=== PATIENT | female | born 1970 | race Caucasian/White ===

== ENCOUNTER 2019-05-22 02:32 | Inpatient (IN) | payer OTHER ==
[~2019-05-22] VITALS: Ht 157.5 cm; Wt 58.1 kg
--- NOTE | 2019-05-22 02:35 | NUR ---
PT [id number] C/O HYPERGLYCEMIA X 1 DAY. PER EMS, BLOOD SUGAR READ "HI" PT AXO3. RESPIRATIONS EVEN AND UNLABORED. PT PUT ON THE NATURAL REMEDY CONSULTANT AND PULSE OX. PT HAVING NAUSEA AND VOMITTING.
[2019-05-22] MEDS ORDERED: ONDANSETRON HCL/PF 4 MG/2 ML VIAL ONE (02:43)
[2019-05-22] MEDS ORDERED: MORPHINE SULFATE INJ 4 MG/ML DISP.SYRIN ONE (02:43)
--- NOTE | 2019-05-22 02:55 | NUR ---
EKG AT BEDSIDE.
[2019-05-22] MEDS ORDERED: IV NS 0.9% 1,000 ML BAG IV ONE (03:00)
[2019-05-22] MEDS ORDERED: INSULIN REGULAR, HUMAN 100 UNIT/ML 10 ML VIAL IV ONE (03:00)
[2019-05-22] MEDS ORDERED: MORPHINE SULFATE INJ 2 MG/ML DISP.SYRIN IV ONE (03:00)
[2019-05-22] MEDS ORDERED: ONDANSETRON HCL/PF 4 MG/2 ML VIAL IVP ONE (03:00)
[2019-05-22 03:09] LABS: BASOPHILS # (AUTO) 0.1 /CMM (0.0-0.2); BASOPHILS % (AUTO) 0.3 % (0.0-2.0); EOSINOPHILS % (AUTO) 0.6 % (0.0-6.0); HEMATOCRIT 40 % (33-45); LYMPHOCYTES # (AUTO) 1.1 /CMM (0.8-4.8); LYMPHOCYTES % (AUTO) 5.5 % (20.0-44.0); MEAN CORPUSCULAR HGB CONC 35 g/dl (31.0-36.0); MEAN CORPUSCULAR VOLUME 92 fL (82-100); MONOCYTES # (AUTO) 0.9 /CMM (0.1-1.30); MONOCYTES % (AUTO) 4.9 % (2.0-12.0); NEUTROPHILS # (AUTO) 17.2 /CMM (1.8-8.9); NEUTROPHILS % (AUTO) 88.7 % (43.0-81.0); PLATELET COUNT (AUTO) 350 /CMM (150-450); RED BLOOD CELL COUNT(AUTO) 4.32 MIL/uL (4.0-5.2); WHITE BLOOD COUNT (AUTO) 19.4 K/uL (4.3-11.0)
[2019-05-22] MEDS ORDERED: INSULIN REGULAR, HUMAN 100 UNIT/ML 10 ML VIAL ONE (03:12)
[2019-05-22 03:24] LABS: ALBUMIN 3.3 g/dL (3.4-5.0); ALKALINE PHOSPHATASE 177 U/L (46-116); BILIRUBIN,DIRECT 0.1 mg/dL (0.0-0.2); BILIRUBIN,TOTAL 0.6 mg/dL (0.2-1.0); CARBON DIOXIDE 22 mmol/L (21-32); CHLORIDE 88 mmol/L (98-107); LIPASE 245 U/L (73-393); POTASSIUM 4.1 mmol/L (3.5-5.1); SODIUM SERUM 123 mmol/L (136-145); TOTAL PROTEIN, SERUM 8.2 g/dL (6.4-8.2); UREA NITROGEN, BLOOD 21 mg/dL (7-18)
[2019-05-22 03:29] LABS: GLUCOSE 614 mg/dL (74-106)
--- NOTE | 2019-05-22 03:34 | NUR ---
PT UNABLE TO URINATE AT THIS MOMENT, ER AWARE.
--- NOTE | 2019-05-22 03:50 | NUR ---
PT AMBULATORY WITH STEADY GAIT TO RESTROOM, URINE SAMPLE OBTAINED AND SENT TO LAB.
[2019-05-22 03:57] LABS: APPEARANCE,URINE Slightly Cloudy (CLEAR); BILIRUBIN,URINE Negative (NEGATIVE); BLOOD, URINE Moderate Ery/uL (NEGATIVE); COLOR,URINE Yellow (YELLOW); KETONES,URINE 15 (NEGATIVE); LEUKOCYTE ESTERASE ,URINE Small (NEGATIVE); NITRITE, URINE Negative (NEGATIVE); PROTEIN,URINE 100 mg/dl (NEGATIVE); UGLUCOSE 500 MG/DL mg/dL (NEGATIVE); UROBILINOGEN,URINE 0.2 EU/dL (0.2)
--- NOTE | 2019-05-22 04:00 | NUR ---
XRAY AT BEDSIDE.
[2019-05-22 04:06] LABS: BACTERIA,URINE Moderate /HPF (None Seen); WBC,URINE 81-100 /HPF (0-3)
[2019-05-22 04:07] LABS: SQUAMOUS EPITHELIAL CELL,UR Few /HPF (None Seen)
[2019-05-22 04:47] LABS: ALANINE AMINOTRANSFERASE 28 U/L (12-78)
--- NOTE | 2019-05-22 05:40 | NUR ---
REPORT GIVEN TO TANG HUNTER FOR ELIAS.
[2019-05-22 05:50] LABS: ASPARTATE AMINOTRANSFERASE 37 U/L (15-37)
--- NOTE | 2019-05-22 06:00 | NUR ---
RECIEVED PT A0 TIMES 3 AMBULATORY W ASSIST. COMPLAINTS OF ABDOMINAL PAIN DUE TO KIDNEYS AND PAIN UPON URINATION. PT IS CONTINENT. R 20 G HAND IV IN TACT. REPORT FROM ER OF BS OF OVER 600, 0621 380 UPON ARRIIVAL ON UNIT, BS WAS 404. CALLED MD PER PROTOCOL AND INITIATED ORDERS. ALLERGIC TO IDODINE. CLAIMS TO LIVE IN AN ASSISTED LIVING. POSITIVE FOR AMPHETAMINES AND A UTI. PT REPORTS TO TAKE GAPAPTENTIN, LANTUS AND HAD A PAST SURGERY 14 YEARS AGO ON HER KIDNEYS. PHOTOS TAKEN UPON ADMISSION. WILL ENDORSE TO STEVEN TO CARRY OUT PLAN OF CARE. BED IN LOW LOCKD POSITION SAFETY MEASURES IN PLACE. Addendum: 05/22/19 at 0715 by TANG LUTZ RN 20 UNITS OF REGULAR INSULIN GIVEN. VITAL SIGNS STABLE.
[2019-05-22 06:15] VITALS: BP 127/69
[2019-05-22] MEDS ORDERED: Z GUARD REMEDY 2 OZ OINT TP PRN (06:30)
[2019-05-22] MEDS ORDERED: MAG HYDROX/AL HYDROX/SIMETH 30 ML UDC PO PRN (06:30)
[2019-05-22] MEDS ORDERED: MAGNESIUM HYDROXIDE 30 ML UDC PO PRN (06:30)
[2019-05-22] MEDS ORDERED: DEXTROSE 50%-WATER 50 ML DISP.SYRIN IV PRN (06:30)
[2019-05-22] MEDS: INSULIN REGULAR, HUMAN 100 UNIT/ML 3 ML VIAL SQ PRN ×3 (06:47→17:00)
[2019-05-22] MEDS ORDERED: ONDANSETRON HCL/PF 4 MG/2 ML VIAL IV PRN (07:00)
[2019-05-22 07:36] LABS: CALCIUM, SERUM 8.3 mg/dL (8.5-10.1); CREATININE 0.8 mg/dL (0.6-1.3); POTASSIUM 3.5 mmol/L (3.5-5.1)
[2019-05-22] MEDS ORDERED: SIMV20TA6 PO (07:37)
[2019-05-22] MEDS ORDERED: CYMBALTA PO (07:37)
[2019-05-22] MEDS ORDERED: PREG100C PO (07:37)
[2019-05-22] MEDS ORDERED: BENA20TA9 PO (07:37)
[2019-05-22] MEDS ORDERED: GABA-534 PO (07:37)
[2019-05-22] MEDS ORDERED: INSU100V7 SQ ×2 (07:37→13:47)
[2019-05-22] MEDS: BLOOD SUGAR DIAGNOSTIC 1 EACH STRIP IN SCH ×4 (07:53→22:00)
[2019-05-22 08:00] VITALS: BP 123/72
[2019-05-22] MEDS: CEFTRIAXONE 1 G in IV D5W 50 ML IV SCH (08:22)
[2019-05-22] MEDS: ONDANSETRON HCL/PF 4 MG/2 ML VIAL IVP PRN (08:23)
[2019-05-22] MEDS: MORPHINE SULFATE INJ 2 MG/ML DISP.SYRIN IV PRN ×3 (08:24→18:56)
[2019-05-22] MEDS: IV NS 0.9% 1,000 ML IV PRN ×2 (08:25→18:29)
[2019-05-22 12:00] VITALS: BP 99/60
[2019-05-22 12:18] LABS: CHOLESTEROL 255 mg/dL (<200); HDL CHOLESTEROL 25 mg/dL (40-60); LDL 54 mg/dL (0-99); TRIGLYCERIDES 2039 mg/dL (30-150)
[2019-05-22] MEDS ORDERED: MEMA5TAB PO (13:47)
[2019-05-22] MEDS ORDERED: INSU100V39 SQ (13:47)
[2019-05-22] MEDS ORDERED: THIA100T88 PO (13:47)
[2019-05-22] MEDS ORDERED: TAMS-12 PO (13:47)
[2019-05-22] MEDS ORDERED: ASPI-605 PO (13:47)
[2019-05-22] MEDS ORDERED: SITA100T PO (13:47)
[2019-05-22] MEDS ORDERED: FAMO-131 PO (13:47)
[2019-05-22] MEDS ORDERED: RISP3TAB14 PO (13:47)
[2019-05-22] MEDS ORDERED: DULO20CA PO (13:47)
[2019-05-22 16:00] VITALS: BP 102/64
[2019-05-22] MEDS: ACETAMINOPHEN 325 MG TABLET PO PRN ×2 (16:13→23:30)
--- NOTE | 2019-05-22 19:18 | NUR ---
teletype adjuster end of shift notes admission process completed. pt stable. fever of 101.5 relieved with tylenol. now pt afebrile. on room air. c/o generalized pain, relieved with morphine. on iv fluids ns at 125ml/hr. bs controlled with insulin; lantus to be given at night. will endorse to pm nurse for zee.
[2019-05-22 20:00] VITALS: BP 115/67
[2019-05-22] MEDS: INSULIN GLARGINE, 100 UNIT/ML CARTRIDGE SQ SCH (23:22)
[2019-05-22] MEDS: *INSULIN REGULAR(HUMULIN R)HUM 100 UNIT/ML VIAL SQ PRN (23:22)
[2019-05-23] MEDS: MORPHINE SULFATE INJ 2 MG/ML DISP.SYRIN IV PRN ×5 (00:27→18:47)
[2019-05-23] MEDS: HYDROCODONE/APAP 5/325MG 1 EACH TABLET PO PRN ×4 (06:14→21:05)
[2019-05-23 06:30] LABS: BASOPHILS # (AUTO) 0.1 /CMM (0.0-0.2); BASOPHILS % (AUTO) 0.4 % (0.0-2.0); EOSINOPHILS % (AUTO) 0.3 % (0.0-6.0); HEMATOCRIT 38 % (33-45); HEMOGLOBIN 12.9 g/dL (11.5-14.8); LYMPHOCYTES % (AUTO) 5.5 % (20.0-44.0); MEAN CORPUSCULAR HGB CONC 34 g/dl (31.0-36.0); MEAN CORPUSCULAR VOLUME 92 fL (82-100); MONOCYTES # (AUTO) 0.8 /CMM (0.1-1.30); MONOCYTES % (AUTO) 4.3 % (2.0-12.0); NEUTROPHILS # (AUTO) 16.4 /CMM (1.8-8.9); NEUTROPHILS % (AUTO) 89.5 % (43.0-81.0); PLATELET COUNT (AUTO) 277 /CMM (150-450); RED BLOOD CELL COUNT(AUTO) 4.09 MIL/uL (4.0-5.2); WHITE BLOOD COUNT (AUTO) 18.3 K/uL (4.3-11.0)
--- NOTE | 2019-05-23 06:48 | NUR ---
RN NOTES ALL NEEDS ATTENDED AND MET, KEPT COMFORTABLE, NO SIGNS OF ACUTE DISTRESS NOTED, SAFETY MEASURES IN PLACE, ABLE TO REST WITH SHORT INTERVALS, WILL ENDORSE TO AM NURSE FOR CONTINUITY OF CARE.
[2019-05-23 06:50] LABS: THYROID STIMULATING HORMONE 0.914 uIU/mL (0.358-3.74)
[2019-05-23 06:51] LABS: CREATININE 0.7 mg/dL (0.6-1.3); MAGNESIUM 1.9 mg/dL (1.8-2.4); PHOSPHORUS 1.7 mg/dL (2.5-4.9); POTASSIUM 3.5 mmol/L (3.5-5.1)
--- NOTE | 2019-05-23 07:20 | NUR ---
RESIDENT ASSISTANT NOTES RECEIVED PT IN BED, AWAKE, A/O X 3-4. PT TOLERATING RA, WITH NO ACUTE RESPIRATORY DISTRESS NOTED. PT DENIES ANY PAIN OR DISCOMFORT AT THIS TIME. ON TELE MONITORING WITH SR WITH HR 80. PER NIGHT NURSE MULTIPLE NURSES TRIED TO START PIV TO PT WITH NO SUCCESS. PT SUPPOSED TO HAVE IVF NS AT 125ML/HR. ALSO PER NIGHT NURSE, CN/SOON CALLED FOR MIDLINE INSERTION; PT IS AWARE AND OKAY WITH IT. PT DENIES ANY OTHER CONCERNS OR QUESTIONS AT THIS TIME. PT KEPT COMFORTABLE. CALL LIGHT AND FLUID KEPT WITHIN REACH. PT'S BED IN LOWEST, LOCKED POSITION WITH SR X2. WILL CONTINUE PLAN OF CARE.
[2019-05-23] MEDS: BLOOD SUGAR DIAGNOSTIC 1 EACH STRIP IN SCH ×4 (07:39→21:05)
[2019-05-23 08:00] VITALS: BP 118/69
[2019-05-23] MEDS: *INSULIN REGULAR(HUMULIN R)HUM 100 UNIT/ML VIAL SQ PRN ×2 (08:00→21:07)
--- NOTE | 2019-05-23 08:09 | NUR ---
TONGUE AND GROOVE MACHINE SETTER NOTES PT IS SCHEDULED TO HAVE ROCEPHIN IV AT 0800. PT STILL DOESN'T HAVE A LINE. FOLLOWED UP WITH NURSING MIXER MACHINE FEEDER FOR MIDLINE INSERTION. CN/SOON AWARE. STILL AWAITING FOR MIDLINE. IV ROCEPHINE NOT ADMINISTERED YET.
[2019-05-23] MEDS: CEFTRIAXONE 1 G in IV D5W 50 ML IV SCH (10:36)
--- NOTE | 2019-05-23 10:40 | NUR ---
TD RN NOTES INSERTED MIDLINE TO SOLEDAD G18, FLUSHED WITH NS, INTACT AND PATENT. RESUMED IVF NS AT 125ML/HR AND IV ROCEPHINE TO ADMINISTER WELL LATE DOSE. CN/SOON AWARE.
[2019-05-23 12:00] VITALS: BP 120/72
--- NOTE | 2019-05-23 12:12 | NUR ---
TD RN NOTES PT SEEN AND EVALUATED BY DR SANCHEZ. PT MADE AWARE MD REGARDING LEFT ARM SWELLING NON-PITTING TO ELBOW, AND WARM TO TOUCH. ORDERED TO PLACE IV [facility]CO [facility] TO DOSE. RN PLACED ORDER. OTHER NEW ORDERS PLACED BY CN/SOON PER DR SANCHEZ ORDER. WILL CONTINUE TO MONITOR PT.
[2019-05-23] MEDS ORDERED: FEE PK DOSING 1 MIN EA MC ONE (12:29)
[2019-05-23] MEDS ORDERED: K PHOS NEUTRAL 250 MG TABLET PO ONE (12:30)
[2019-05-23] MEDS: INSULIN REGULAR, HUMAN 100 UNIT/ML 3 ML VIAL SQ PRN ×2 (12:31→16:58)
[2019-05-23] MEDS: VANCOMYCIN 0.75 GM in IV D5W 250 ML IV SCH ×2 (13:01→20:20)
[2019-05-23 16:00] VITALS: BP 116/78
[2019-05-23] MEDS: IV NS 0.9% 1,000 ML IV PRN (17:34)
--- NOTE | 2019-05-23 18:54 | NUR ---
BREWERY WORKER NOTES PT IN BED, AWAKE, A/O X 3-4. PT TOLERATING RA, WITH NO ACUTE RESPIRATORY DISTRESS NOTED. PT STATED PAIN, PRN PAIN MEDICINE GIVEN ORDERED. ON TELE MONITORING WITH ST WITH HR 103. PIV MIDLINE TO SOLEDAD G18 WITH NS 125ML/HR IVF RUNNING. ALL NEEDS AND CARE ATTENDED. PT KEPT COMFORTABLE. CALL LIGHT AND FLUID KEPT WITHIN REACH. PT'S BED IN LOWEST, LOCKED POSITION WITH SR X2. WILL ENDOSE TO INCOMING NIGHT NURSE FOR ELIAS.
--- NOTE | 2019-05-23 18:54 | NUR ---
ANDROID FRAMEWORK DEVELOPER NOTES PT IN BED, AWAKE, A/O X 3-4. AMBULATORY. PT TOLERATING RA, WITH NO ACUTE RESPIRATORY DISTRESS NOTED. PT DENIES ANY PAIN OR DISCOMFORT AT THIS TIME. ON TELE MONITORING WITH SR WITH HR 80. PER NIGHT NURSE MULTIPLE NURSES TRIED TO START PIV TO PT WITH NO SUCCESS. PT SUPPOSED TO HAVE IVF NS AT 125ML/HR. ALSO PER NIGHT NURSE, CN/SOON CALLED FOR MIDLINE INSERTION; PT IS AWARE AND OKAY WITH IT. PT DENIES ANY OTHER CONCERNS OR QUESTIONS AT THIS TIME. PT KEPT COMFORTABLE. CALL LIGHT AND FLUID KEPT WITHIN REACH. PT'S BED IN LOWEST, LOCKED POSITION WITH SR X2. WILL CONTINUE PLAN OF CARE.
--- NOTE | 2019-05-23 19:41 | NUR ---
FINISHED GOODS INSPECTOR NOTE: RECEIVED PT SITTING AT THE EDGE OF THE BED, ALERT AND ORIENTED X3. ABLE TO MAKE NEEDS KNOWN. NO APPARENT DISTRESS NOTED. STILL COMPLAINING OF LEFT ELBOW PAIN, PRN MORPHINE GIVEN BY DAY SHIFT RN. ON ROOM AIR, NO SOB NOTED. SINUS TACHY ON TELE MONITOR HR 113BPM. RIGHT UPPER ARM MIDLINE INTACT AND PATENT, IVF INFUSING WELL. KEPT CLEAN, DRY AND COMFORTABLE. CALL LIGHT PLACED WITHIN REACH. ENCOURAGED PT TO CALL FOR ASSISTANCE WHEN NEEDED ESPECIALLY WHEN GOING TO THE BATHROOM, PT VERBALIZED UNDERSTANDING. SAFETY AND FALL PRECAUTIONS OBSERVED AND MAINTAINED. WILL CONTINUE TO MONITOR PT.
--- NOTE | 2019-05-23 19:54 | NUR ---
PLATFORM ENGINEER NOTE: RECEIVED A CALL FROM NALINI OF RADIOLOGY AND WAS INFORMED THAT SANDHYA ([facility] ARCHITECT) IS AWARE REGARDING MRI OF ELBOW STAT ORDER AND WAS TOLD THAT THEY WILL BE THE ONE TO COORDINATE THAT PROCEDURE IT NEEDS TO BE APPROVED FIRST.
[2019-05-23 20:00] VITALS: BP 125/85
[2019-05-23 20:10] VITALS: BP 165/85
[2019-05-23] MEDS: INSULIN GLARGINE, 100 UNIT/ML CARTRIDGE SQ SCH (21:06)
[2019-05-23] MEDS: diphenhydrAMINE HCL 25 MG CAPSULE PO PRN (22:13)
[2019-05-24] VITALS (8 sets, daily range): BP systolic 130–177; BP diastolic 65–104
[2019-05-24] MEDS: MORPHINE SULFATE INJ 2 MG/ML DISP.SYRIN IV PRN ×5 (01:34→21:49)
[2019-05-24] MEDS: HYDROCODONE/APAP 5/325MG 1 EACH TABLET PO PRN ×5 (02:13→20:48)
[2019-05-24] MEDS: IV NS 0.9% 1,000 ML IV PRN ×2 (03:37→21:13)
--- NOTE | 2019-05-24 03:53 | NUR ---
ONLINE PROJECT MANAGER NOTE: PT TOOK OUT HER TELE MONITOR AND REFUSED TO PUT IT BACK ON. PER PT SHE'S NOT COMFORTABLE WITH IT. EXPLAINED RISKS AND BENEFITS BUT PT STILL REFUSED. CHARGE NURSE AWARE. WILL CONTINUE TO MONITOR PT.
[2019-05-24] MEDS: diphenhydrAMINE HCL 25 MG CAPSULE PO PRN ×3 (04:19→19:47)
[2019-05-24] MEDS: VANCOMYCIN 0.75 GM in IV D5W 250 ML IV SCH ×2 (04:20→13:33)
--- NOTE | 2019-05-24 06:44 | NUR ---
MANAGER BAR NOTE: NO CHANGES NOTED THROUGHOUT THE SHIFT. NO APPARENT DISTRESS NOTED. PT COMPLAINED OF GENERALIZED PAIN, PRN PAIN MEDS GIVEN ORDERED. ON ROOM AIR, NO SOB NOTED. PT STILL REFUSING TO PUT ON TELE MONITOR. KEPT CLEAN, DRY AND COMFORTABLE. CALL LIGHT PLACED WITHIN REACH. WILL ENDORSE TO DAY SHIFT RN FOR CONTINUITY OF CARE.
--- NOTE | 2019-05-24 06:53 | NUR ---
TEXTED DR. PINTO FOR MRI APPROVAL.
--- NOTE | 2019-05-24 07:30 | NUR ---
COURT CRIER NOTES RECEIVED PATIENT IN BED RESTING, ALERT AND ORIENTED X3. ABLE TO MAKE NEEDS KNOWN. NO APPARENT DISTRESS NOTED. STILL COMPLAINING OF LEFT ELBOW PAIN, WILL ADMINISTER PAIN MEDS ORDERED. ON ROOM AIR, NO SOB NOTED. PATIENT REFUSED TO PUT TELEMONITOR ON, EXPLAINED RISK AND BENEFITS BUT STILL REFUSED, WILL NOTIFY MD. RIGHT UPPER ARM MIDLINE INTACT AND PATENT, IVF INFUSING WELL. KEPT CLEAN, DRY AND COMFORTABLE. CALL LIGHT PLACED WITHIN REACH. ENCOURAGED PATIENT TO CALL FOR ASSISTANCE WHEN NEEDED ESPECIALLY WHEN GOING TO THE BATHROOM, PATIENT VERBALIZED UNDERSTANDING. SAFETY AND FALL PRECAUTIONS OBSERVED AND MAINTAINED. BED ALARM ON. BED IN LOW/LOCKED POSITION, SIDERAILS UPX2, CALL LIGHT IN REACH. WILL CONTINUE TO MONITOR ACCORDINGLY.
[2019-05-24 07:41] LABS: BASOPHILS # (AUTO) 0.1 /CMM (0.0-0.2); BASOPHILS % (AUTO) 0.6 % (0.0-2.0); EOSINOPHILS % (AUTO) 1.7 % (0.0-6.0); HEMATOCRIT 37 % (33-45); HEMOGLOBIN 12.4 g/dL (11.5-14.8); LYMPHOCYTES # (AUTO) 1.2 /CMM (0.8-4.8); MEAN CORPUSCULAR HGB CONC 34 g/dl (31.0-36.0); MEAN CORPUSCULAR VOLUME 92 fL (82-100); MONOCYTES # (AUTO) 0.8 /CMM (0.1-1.30); MONOCYTES % (AUTO) 5.2 % (2.0-12.0); NEUTROPHILS % (AUTO) 84.5 % (43.0-81.0); PLATELET COUNT (AUTO) 269 /CMM (150-450); RED BLOOD CELL COUNT(AUTO) 3.98 MIL/uL (4.0-5.2); WHITE BLOOD COUNT (AUTO) 15.4 K/uL (4.3-11.0)
--- NOTE | 2019-05-24 07:58 | NUR ---
RN NOTES COMPLAINTS OF PAIN IN LEFT ARM. NORCO 5 PO GIVEN ORDERED. WILL REASSESS PATIENT ACCORDINGLY Addendum: 05/24/19 at 1153 by NADIYA MELENDREZ NORCO GIVEN, WITNESS BY SHMUEL PAREDES. MEDICATION DIDNT REGISTERED GIVEN IN eMAR DUE TO COMPUTER SHUT OFF. MEDICATION ADMINISTERED MANUALLY, BRIANNAPHARMACIST MADE AWARE.
--- NOTE | 2019-05-24 08:04 | NUR ---
WOUND CARE CONSULT: PT PRESENTS WITH LEFT ELBOW AND ARM REDNESS, SWELLING AND WARMTH WITH DISCOMFORT, LEFT MIDDLE FINGER DRY ESCHAR (NO TENDERNESS), BILATERAL KNEE DRY SCABS(NO TENDERNESS), ALL PRESENT ON ADMISSION. PT IS AMBULATORY AND CONTINENT. PT REFUSED FULL SKIN ASSESSMENT OF BACK AND BUTTOCKS BUT ALLOWED ASSESSMENT OF EXTREMITIES. DEFER TO MD/ORTHO FOR LEFT UPPER EXTREMITY. WILL SEE PRN. CURRENT MANUELA SCORE IS 21. Addendum: 05/24/19 at 0807 by ALEC TALAVERA WNDNU Amended: Links added.
[2019-05-24] MEDS: BLOOD SUGAR DIAGNOSTIC 1 EACH STRIP IN SCH ×4 (08:08→22:28)
[2019-05-24] MEDS: CEFTRIAXONE 1 G in IV D5W 50 ML IV SCH (08:08)
[2019-05-24] MEDS: INSULIN REGULAR, HUMAN 100 UNIT/ML 3 ML VIAL SQ PRN ×3 (08:19→16:51)
[2019-05-24 08:58] LABS: CALCIUM, SERUM 8.3 mg/dL (8.5-10.1); CREATININE 0.8 mg/dL (0.6-1.3); MAGNESIUM 1.8 mg/dL (1.8-2.4); PHOSPHORUS 1.9 mg/dL (2.5-4.9); POTASSIUM 3.4 mmol/L (3.5-5.1)
--- NOTE | 2019-05-24 09:30 | NUR ---
RN NOTE PER KAY, CLINIC LICENSED PRACTICAL NURSE, ATTEMPTED TO DO MRI ON PATIENT BUT PATIENT COULD'NT TOLERATE THE PAIN AND STATED THAT SHE COULD NOT BREATH INSIDE THE MRI MACHINE. PATIENT TRANSFERRED BACK TO THE UNIT. 0908: PATIENT MEDICATED WITH MORPHINE IV ORDERED PRIOR TO MRI.
--- NOTE | 2019-05-24 10:00 | NUR ---
RN NOTES DR SANCHEZ NOTIFIED PATIENT'S MEDRECON NOT DONE YET.
--- NOTE | 2019-05-24 10:38 | NUR ---
RN NOTES DR SANCHEZ NOTIFIED WHY PATIENT HAS'NT DONE MRI YET. EXPLAINED TO MD WHAT HAPPENED. PER MD, GIVE PAIN MEDICATIONS AND ATIVAN 1MG IV ONE TIME PRIOR TO MRI. ORDERS NOTED AND WILL CARRY OUT.
[2019-05-24] MEDS ORDERED: LORAZEPAM INJ 2 MG/ML VIAL IV ONE (11:00)
[2019-05-24] MEDS ORDERED: K PHOS NEUTRAL 250 MG TABLET PO ONE (11:30)
--- NOTE | 2019-05-24 11:35 | NUR ---
Social service consult requested by Dr. Solomon for homelessness and limited resources. Pt. is a 48 year old male who was admitted to [facility] hyperglycemia and abdominal pain. SW met with pt. bedside. Pt. is alert and oriented x 3. Pt. appears disheveled. Pt. appears uncomfortable and states she has abdominal pain. Pt. states she is currently homeless. She was residing at an Independent living at [address] [place] [address] in [place] but cannot go back there. Pt. is not able to provide the reason she is not able to go back. Pt. states she was receiving $1000 per month in SSI but it was discontinued. Pt. states she went to the social security office and completed the documentation to get it reinstated. Pt. also receives GR and food stamps. SKYLER inquired with pt. if she wants fci placement, Pt stated, " no and then stated I don't know what I want at this time." SW informed pt. she will come back at a later time when pt. is feeling better to discuss discharge plan.
[2019-05-24] MEDS: LACTOBACILLUS RHAMNOSUS GG 1 EACH CAP.SPRINK PO SCH (16:14)
--- NOTE | 2019-05-24 18:10 | NUR ---
RN NOTES PER ADAM FROM RADIOLOGY, DR WETZEL WILL TAKE CARE OF ARTHROCENTESIS OF LEFT ELBOW BUT NO DEFINITE TIME YET. RADIOLOGY DEPT IS AWARE OF IT.
--- NOTE | 2019-05-24 18:36 | NUR ---
RN CLOSING NOTES PATIENT IN STABLE CONDITION. ALL NEED ATTENDED AND PROVIDED. ALL DUE MEDICATIONS GIVEN S ORDERED. KEPT PATIENT SAFE AND COMFORTABLE. BED IN LOW/LOCKED POSITION, SIDERAILS UPX2, CALL LIGHT IN REACH. WILL ENDORSED TO NIGHT RN FOR ELIAS.
--- NOTE | 2019-05-24 19:10 | NUR ---
MS RN NOTES RECEIVED PT IN BED AWAKE AND ABLE TO MAKE NEEDS KNOW. RESPIRATIONS EVEN AND UNLABORED WITH NO S/S OF ACUTE DISTRESS OR SOB NOTED. PT WITH SOLEDAD MIDLINE RUNNING NS @125ML/HR TOLERATING WELL. SAFETY MEASURES IN PLACE WITH BED IN LOWEST LOCKED POSITION WITH SIDE RAILS UP X2. CALL LIGHT WITHIN REACH. WILL CONTINUE TO MONITOR.
[2019-05-24] MEDS: ONDANSETRON HCL/PF 4 MG/2 ML VIAL IVP PRN (20:48)
[2019-05-24] MEDS: VANCOMYCIN 1 GM in IV D5W 250 ML IV SCH (21:23)
[2019-05-24] MEDS: INSULIN GLARGINE, 100 UNIT/ML CARTRIDGE SQ SCH (22:32)
[2019-05-24] MEDS: *INSULIN REGULAR(HUMULIN R)HUM 100 UNIT/ML VIAL SQ PRN (22:34)
[2019-05-25] MEDS: HYDROCODONE/APAP 5/325MG 1 EACH TABLET PO PRN ×4 (01:20→21:22)
--- NOTE | 2019-05-25 02:28 | NUR ---
MS HUNTER NOTE CHANO JONES 5 GIVEN FOR PAIN 7-10 IN L ELBOW, WILL CONT. TO MONITOR. Addendum: 05/26/19 at 0618 by JHONY RG RN WRONG DATE WRITTEN. PLEASE DISREGARD NOTE
[2019-05-25] MEDS: MORPHINE SULFATE INJ 2 MG/ML DISP.SYRIN IV PRN ×4 (02:49→18:05)
[2019-05-25 04:00] VITALS: BP 132/76
[2019-05-25] MEDS: VANCOMYCIN 1 GM in IV D5W 250 ML IV SCH ×3 (05:38→21:09)
[2019-05-25 06:37] LABS: BASOPHILS # (AUTO) 0.1 /CMM (0.0-0.2); BASOPHILS % (AUTO) 0.5 % (0.0-2.0); EOSINOPHILS % (AUTO) 1.9 % (0.0-6.0); HEMATOCRIT 35 % (33-45); HEMOGLOBIN 11.9 g/dL (11.5-14.8); LYMPHOCYTES # (AUTO) 1.5 /CMM (0.8-4.8); LYMPHOCYTES % (AUTO) 11.8 % (20.0-44.0); MEAN CORPUSCULAR HGB CONC 34 g/dl (31.0-36.0); MEAN CORPUSCULAR VOLUME 91 fL (82-100); MONOCYTES # (AUTO) 0.8 /CMM (0.1-1.30); MONOCYTES % (AUTO) 6.3 % (2.0-12.0); NEUTROPHILS # (AUTO) 10.2 /CMM (1.8-8.9); NEUTROPHILS % (AUTO) 79.5 % (43.0-81.0); PLATELET COUNT (AUTO) 324 /CMM (150-450); RED BLOOD CELL COUNT(AUTO) 3.83 MIL/uL (4.0-5.2); WHITE BLOOD COUNT (AUTO) 12.9 K/uL (4.3-11.0)
--- NOTE | 2019-05-25 06:56 | NUR ---
MS RN NOTES PT IN BED ASLEEP BUT EASILY AWOKEN VERBALLY OR BY TOUCH. PT A/O X3 AND ABLE TO MAKE NEEDS KNOW. RESPIRATIONS EVEN AND UNLABORED WITH NO S/S OF ACUTE DISTRESS OR SOB NOTED THROUGHOUT SHIFT. PT WITH SOLEDAD MIDLINE RUNNING NS @125ML/HR AND TOLERATING WELL. SAFETY MEASURES IN PLACE WITH BED IN LOWEST LOCKED POSITION WITH SIDE RAILS UP X2. CALL LIGHT WITHIN REACH. WILL ENDORSE TO ONCOMING NURSE FOR ELIAS.
[2019-05-25 06:57] LABS: CALCIUM, SERUM 8.2 mg/dL (8.5-10.1); CREATININE 0.8 mg/dL (0.6-1.3); MAGNESIUM 1.7 mg/dL (1.8-2.4); POTASSIUM 3.2 mmol/L (3.5-5.1)
[2019-05-25 07:08] LABS: PHOSPHORUS 2.4 mg/dL (2.5-4.9)
[2019-05-25] MEDS: IV NS 0.9% 1,000 ML IV PRN ×2 (07:12→18:02)
[2019-05-25 08:00] VITALS: BP 139/74
--- NOTE | 2019-05-25 08:00 | NUR ---
MS RN AM NOTES RECEIVED PATIENT IN BED RESTING, ALERT AND ORIENTED X3. ABLE TO MAKE NEEDS KNOWN. NO APPARENT DISTRESS NOTED. STILL COMPLAINING OF LEFT ELBOW PAIN, WITH REDNESS /SWELLING NOTED.ELEVATED LEFT ELBOW WITH PILLOWS.WILL ADMINISTER PAIN MEDS ORDERED. ON ROOM AIR, NO SOB NOTED. RIGHT UPPER ARM MIDLINE INTACT AND PATENT, IVF INFUSING WELL. KEPT CLEAN, DRY AND COMFORTABLE. PT KEEPS WASHING HER RT ELBOW WITH WATER SPILLING WATER ON THE FLOOR. REFUSED TO HAVE TOWEL PLACED ON THE FLOOR TO AVOID SPILLAGE-PUTTING PT/STAFF/PEOPLE AT RISK TO SLIDE ON THE FLOOR BUT PT REFUSED TO HAVE TOWEL ON THE FLOOR .EXPLAINED THE RISKS AND BENEFITS BUT PT INSISTS TO REFUSE.CALL LIGHT PLACED WITHIN REACH. ENCOURAGED PATIENT TO CALL FOR ASSISTANCE WHEN NEEDED ESPECIALLY WHEN GOING TO THE BATHROOM, PATIENT VERBALIZED UNDERSTANDING. SAFETY AND FALL PRECAUTIONS OBSERVED AND MAINTAINED. BED ALARM ON. BED IN LOW/LOCKED POSITION, SIDERAILS UPX2,. WILL CONTINUE TO MONITOR ACCORDINGLY.
[2019-05-25] MEDS: BLOOD SUGAR DIAGNOSTIC 1 EACH STRIP IN SCH ×4 (08:09→21:09)
[2019-05-25] MEDS: CEFTRIAXONE 1 G in IV D5W 50 ML IV SCH (08:11)
[2019-05-25] MEDS: LACTOBACILLUS RHAMNOSUS GG 1 EACH CAP.SPRINK PO SCH ×2 (08:59→16:41)
[2019-05-25] MEDS: INSULIN REGULAR, HUMAN 100 UNIT/ML 3 ML VIAL SQ PRN ×3 (09:02→16:42)
[2019-05-25] MEDS ORDERED: LORAZEPAM INJ 2 MG/ML VIAL IV ONE (09:30)
--- NOTE | 2019-05-25 10:26 | NUR ---
PT CAME BACK FROM MRI PROCEDURE OF THE LT ELBOW AND MRI WAS FINALLY DONE.
[2019-05-25] MEDS: Magnesium 1GM/D5W 100ML PREMIX 100 ML IV SCH ×2 (10:43→14:12)
[2019-05-25] MEDS: POTASSIUM CL. PREMIX PERIPHER. 50 ML IV SCH ×4 (11:37→17:52)
[2019-05-25] MEDS ORDERED: K PHOS NEUTRAL 250 MG TABLET PO ONE (12:30)
--- NOTE | 2019-05-25 13:41 | NUR ---
PT HAS ONGOING VANCO IV AND KEEPS GOING TO THE TOILET DELAYING THE ADMINISTRATION OF K+ IV AND MAG IV
[2019-05-25 16:00] VITALS: BP 127/84
--- NOTE | 2019-05-25 18:52 | NUR ---
PT RESTING IN BED DENYING ANY PAIN OR DISTRESS.PAIN MGT EFFECTIVE.ELEVATED LT ELBOW WITH PILLOWS.WITH ONGOING IVF INFUSING WELL.CALL LIGHT PLACED WITHIN REACH.
[2019-05-25 19:44] LABS: URINE SODIUM, RANDOM 53 mmol/l (40-220)
[2019-05-25 19:58] LABS: OSMOLALITY,URINE 411 mOS/kg (340-1090)
[2019-05-25 20:00] VITALS: BP 136/68
--- NOTE | 2019-05-25 20:07 | NUR ---
RN NOTES, PATIENT IN STABLE CONDITION ENDORSED TO ELSA CACERES FOR CONTINUATION OF CARE.
--- NOTE | 2019-05-25 20:07 | NUR ---
MS RN NOTE RECEIVED REPORT FROM ABIMAEL. PT IN STABLE CONDITION A&O X4, CURRENTLY ASLEEP IN BED. NO SIGNS OF SOB OR DISTRESS, NO INDICATIONS OF PAIN. ALL CURRENT NEEDS ATTENDED TO. BED LOW, LOCKED, UPPER RAILS UP AND CALL LIGHT WITHIN REACH. WILL CONT. TO MONITOR.
[2019-05-25] MEDS: INSULIN GLARGINE, 100 UNIT/ML CARTRIDGE SQ SCH (21:22)
--- NOTE | 2019-05-25 21:22 | NUR ---
MS RN NOTE PRN NORCO 5/325 GIVEN FOR PAIN 7-10 IN L ELBOW, WILL CONT. TO MONITOR.
[2019-05-26] MEDS: MORPHINE SULFATE INJ 2 MG/ML DISP.SYRIN IV PRN ×5 (00:55→21:13)
--- NOTE | 2019-05-26 00:55 | NUR ---
MS RN NOTE PRN MORPHINE 2 MG IV GIVEN FOR PAIN 8/10 IN L ELBOW, WILL CONT. TO MONITOR.
[2019-05-26] MEDS: diphenhydrAMINE HCL 25 MG CAPSULE PO PRN (01:51)
--- NOTE | 2019-05-26 01:51 | NUR ---
MS RN NOTE PRN BENADRYL GIVEN FOR GENERALIZED BODY ITCHING, WILL CONT. TO MONITOR.
[2019-05-26] MEDS: HYDROCODONE/APAP 5/325MG 1 EACH TABLET PO PRN (02:28)
--- NOTE | 2019-05-26 02:28 | NUR ---
MS RN NOTE PRN NORCO 5/325 GIVEN FOR PAIN 7-10 IN L ELBOW, WILL CONT. TO MONITOR.
[2019-05-26] MEDS: VANCOMYCIN 1 GM in IV D5W 250 ML IV SCH ×3 (04:06→21:53)
--- NOTE | 2019-05-26 06:15 | NUR ---
MS RN NOTE PT IN STABLE CONDITION A&O X4, CURRENTLY ASLEEP IN BED. NO SIGNS OF SOB OR DISTRESS, NO INDICATIONS OF PAIN. ALL CURRENT NEEDS ATTENDED TO. BED LOW, LOCKED, UPPER RAILS UP AND CALL LIGHT WITHIN REACH. WILL CONT. TO MONITOR AND ENDORSE TO NEXT SHIFT FOR ELIAS.
[2019-05-26 07:06] LABS: BASOPHILS # (AUTO) 0.1 /CMM (0.0-0.2); BASOPHILS % (AUTO) 0.5 % (0.0-2.0); EOSINOPHILS % (AUTO) 2.6 % (0.0-6.0); HEMATOCRIT 31 % (33-45); HEMOGLOBIN 10.6 g/dL (11.5-14.8); LYMPHOCYTES # (AUTO) 1.6 /CMM (0.8-4.8); LYMPHOCYTES % (AUTO) 14.2 % (20.0-44.0); MEAN CORPUSCULAR HGB CONC 34 g/dl (31.0-36.0); MEAN CORPUSCULAR VOLUME 91 fL (82-100); MONOCYTES # (AUTO) 0.9 /CMM (0.1-1.30); NEUTROPHILS # (AUTO) 8.6 /CMM (1.8-8.9); NEUTROPHILS % (AUTO) 74.7 % (43.0-81.0); PLATELET COUNT (AUTO) 316 /CMM (150-450); RED BLOOD CELL COUNT(AUTO) 3.42 MIL/uL (4.0-5.2); WHITE BLOOD COUNT (AUTO) 11.5 K/uL (4.3-11.0)
[2019-05-26 07:23] LABS: CREATININE 0.7 mg/dL (0.6-1.3); MAGNESIUM 1.9 mg/dL (1.8-2.4); POTASSIUM 3.2 mmol/L (3.5-5.1)
[2019-05-26] MEDS: BLOOD SUGAR DIAGNOSTIC 1 EACH STRIP IN SCH ×4 (07:38→22:00)
[2019-05-26 08:00] VITALS: BP 136/76
[2019-05-26] MEDS: CEFTRIAXONE 1 G in IV D5W 50 ML IV SCH (08:15)
[2019-05-26] MEDS: INSULIN REGULAR, HUMAN 100 UNIT/ML 3 ML VIAL SQ PRN ×4 (08:15→21:42)
[2019-05-26] MEDS: LACTOBACILLUS RHAMNOSUS GG 1 EACH CAP.SPRINK PO SCH ×2 (08:16→16:45)
--- NOTE | 2019-05-26 09:53 | NUR ---
RN NOTES PER VIKASH FAUSTIN, CHANGE PRN PO BENADRYL TO IV.
[2019-05-26] MEDS: POTASSIUM CHLORIDE 20 MEQ TAB.PRT.SR PO SCH ×2 (11:19→11:57)
[2019-05-26] MEDS: diphenhydrAMINE HCL 50 MG/ML VIAL IV PRN ×2 (11:20→18:13)
[2019-05-26] MEDS ORDERED: K PHOS NEUTRAL 250 MG TABLET PO ONE (12:00)
[2019-05-26] MEDS: IV NS 0.9% 1,000 ML IV PRN ×2 (13:04→15:58)
[2019-05-26 16:00] VITALS: BP 164/79
--- NOTE | 2019-05-26 18:52 | NUR ---
RN CLOSING NOTES PT RESTING IN BED. ALL PATIENT NEEDS MET DURING SHIFT. PT COMPLAINS OF LEFT ELBOW PAIN. PT HAS A RIGHT UPPER ARM MIDLINE RUNNING NS @75ML/HR. PT PAIN MANAGED WITH MORPHINE Q4H. PT REQUESTS BENADRYL Q6H FOR "ITCHINESS". SAFETY PRECAUTIONS IN PLACE, BED IN LOWEST LOCKED POSITION, X2 SIDE RAILS UP AND CALL LIGHT WITHIN REACH. WILL ENDORSE TO ELECTRONIC DEVICE REPAIRER NURSE FOR CONTINUITY OF CARE.
[2019-05-26 20:00] VITALS: BP 151/89
[2019-05-26] MEDS: INSULIN GLARGINE, 100 UNIT/ML CARTRIDGE SQ SCH (21:43)
[2019-05-26] MEDS: ACETAMINOPHEN 325 MG TABLET PO PRN (21:47)
[2019-05-26] MEDS: ONDANSETRON HCL/PF 4 MG/2 ML VIAL IVP PRN (21:47)
--- NOTE | 2019-05-26 21:48 | NUR ---
TYLENOL AND ZOFRAN GIVEN PRN. PATIENT REPORTS HAVING NAUSEA ZOFRAN ADMINISTERED PRN. PATIENT HAS MILD FEVER OF 100.4 AND IS REQUESTING TYELENOL. TYELENOL ADMINISTERED ORDERED.
[2019-05-27] MEDS: MORPHINE SULFATE INJ 2 MG/ML DISP.SYRIN IV PRN ×4 (01:15→14:18)
--- NOTE | 2019-05-27 01:15 | NUR ---
morphine prn patient c/o pain 10 of 10 to left arm. requesting morphine. morphine administered as ordered.
--- NOTE | 2019-05-27 01:29 | NUR ---
patient refused arm elevation, bladder scan, heat compress patient has arm elevated across her chest but informed that the doctor is recommending her arm be elevated higher on 3 pillows. patient states "No, i don't want to do that my arm is fine the way it is." patient offered warm compress as ordered by the doctor, pt states "No my arm is fine, i don't want to put anythin on it right now." patient informed that doctor ordered bladder scan every 8 hours. patient states "Well i don't need that done, when i feel like peeing i get up and go pee. I don't want that done" patient notified to call if she changes her mind about having recommended therapies. and informed therapies could help the swelling in her arm resolve faster. verbalzied understanding.
[2019-05-27] MEDS: diphenhydrAMINE HCL 50 MG/ML VIAL IV PRN ×3 (02:01→19:15)
[2019-05-27] MEDS: IV NS 0.9% 1,000 ML IV PRN (02:11)
[2019-05-27 04:00] VITALS: BP 146/79
[2019-05-27] MEDS: VANCOMYCIN 0.75 GM in IV D5W 250 ML IV SCH ×3 (04:36→20:24)
[2019-05-27] MEDS: INSULIN REGULAR, HUMAN 100 UNIT/ML 3 ML VIAL SQ PRN ×4 (06:16→22:31)
[2019-05-27 06:39] LABS: BASOPHILS # (AUTO) 0.1 /CMM (0.0-0.2); BASOPHILS % (AUTO) 0.6 % (0.0-2.0); EOSINOPHILS % (AUTO) 2.7 % (0.0-6.0); HEMATOCRIT 32 % (33-45); HEMOGLOBIN 10.8 g/dL (11.5-14.8); LYMPHOCYTES # (AUTO) 1.8 /CMM (0.8-4.8); LYMPHOCYTES % (AUTO) 12.4 % (20.0-44.0); MEAN CORPUSCULAR HGB CONC 34 g/dl (31.0-36.0); MEAN CORPUSCULAR VOLUME 92 fL (82-100); MONOCYTES # (AUTO) 1.2 /CMM (0.1-1.30); MONOCYTES % (AUTO) 8.2 % (2.0-12.0); NEUTROPHILS # (AUTO) 11.1 /CMM (1.8-8.9); NEUTROPHILS % (AUTO) 76.1 % (43.0-81.0); PLATELET COUNT (AUTO) 367 /CMM (150-450); RED BLOOD CELL COUNT(AUTO) 3.48 MIL/uL (4.0-5.2); WHITE BLOOD COUNT (AUTO) 14.6 K/uL (4.3-11.0)
[2019-05-27] MEDS: BLOOD SUGAR DIAGNOSTIC 1 EACH STRIP IN SCH ×4 (06:50→22:26)
[2019-05-27 06:55] LABS: CALCIUM, SERUM 8.7 mg/dL (8.5-10.1); CREATININE 0.7 mg/dL (0.6-1.3); POTASSIUM 3.4 mmol/L (3.5-5.1)
--- NOTE | 2019-05-27 07:30 | NUR ---
RN AM SHIFT NOTE MS PATIENT IN BED AWAKE, REPORTS TO RN SHE IS VOIDING IN BEDSIDE COMODE. NO SIGNS OF DISTRESS. IV PATENT AND INTACT, BED LOW TO FLOOR, SIDE RAILS UP CALL LIGHT WITHIN REACH. RN WILL PERFORM BLADDER SCAN TODAY PER MD ORDER DUE TO CT ABD RESULTING BLADDER DISTENTION. MONITOR PATIENT.
--- NOTE | 2019-05-27 07:30 | NUR ---
RN AM SHIFT NOTE MS PATIENT IN BED, CONFUSED, REPEATS SAME QUESTIONS CONSTANTLY. VERY ANXIOUS, SAYS SHE CANT BREATHE BUT VITALS ALL WNL. . NO SIGNS OF DISTRESS OTHER THAN ANXIETY. IV PATENT AND INTACT, BED LOW TO FLOOR, SIDE RAILS UP CALL LIGHT WITHIN REACH. CONTINUE TO MONITOR. Addendum: 05/27/19 at 0740 by ARIELLE LUCAS RN WRONG PATIENT, SEE PREVIOUS NOTE FOR KAERS
[2019-05-27 08:00] VITALS: BP 148/72
[2019-05-27] MEDS: LACTOBACILLUS RHAMNOSUS GG 1 EACH CAP.SPRINK PO SCH ×2 (08:05→17:00)
[2019-05-27] MEDS: CEFTRIAXONE 1 G in IV D5W 50 ML IV SCH (08:05)
--- NOTE | 2019-05-27 09:11 | NUR ---
RN NOTE ORTHO PA CALLED , ORDER FOR NPO PER MD DUE TO POSSIBLE PROCEDURE. ORTHO WILL COME BY TODAY TO ASSESS PATIENT TODAY.
[2019-05-27] MEDS ORDERED: POTASSIUM CHLORIDE 20 MEQ TAB.PRT.SR PO SCH (10:00)
--- NOTE | 2019-05-27 11:37 | NUR ---
RN NOTE PATIENT COMPLAINING OF GENERALIZED ITCHING. NO RASH OR HIVES PRESENT, NO DIFFICULTY BREATHING. RN GAVE IV BENADRYL PER MD ORDER.
--- NOTE | 2019-05-27 13:00 | NUR ---
RN BLADDER SCANNER RN PERFORMED BLADDER SCANNER. PATIENT HAS DISTENDED BLADDER, WITH TOTAL OF 200ML OF RESIDUAL. PATIENT STATING THAT SHE IS URINATING, AMBULATING TO RESTROOM WITH ASSISTANCE. NO COMPLAINTS OF PAIN OR BURNING DURING URINATION. RN WILL PUT HAT IN TOILET TO MONITOR OUTPUT. CALL LIGHT WITHIN REACH SAFETY MEASURES IN PLACE
--- NOTE | 2019-05-27 13:19 | NUR ---
RN NOTE MORPHINE WAS ADMINISTERED PER MD ORDER IVP. RN DID NOT SCAN THE MEDICATION, IT WAS THROWN IN THE SHARPS CONTAINER. WILL CONTINUE WITH MD ORDER OF EVERY 4 HOURS.
[2019-05-27] MEDS: ACETAMINOPHEN 325 MG TABLET PO PRN (13:25)
[2019-05-27 16:00] VITALS: BP 144/71
[2019-05-27] MEDS ORDERED: BACITRACIN 50000 UNITS/VIAL ONE (16:59)
[2019-05-27] MEDS ORDERED: ANESTHESIA TRAY IN PYXIS 1 EA TRAY MC ONE (16:59)
[2019-05-27] MEDS ORDERED: MIDAZOLAM HCL 2 MG/2ML VIAL ONE (17:00)
[2019-05-27] MEDS ORDERED: SUCCINYLCHOLINE CHLORIDE 20 MG/ML VIAL ONE (17:00)
[2019-05-27] MEDS ORDERED: BUPIVACAINE 0.5 % PF 150 MG/30 ML VIAL ONE (17:03)
[2019-05-27] MEDS ORDERED: HYDROMORPHONE INJ 2 MG/ML DISP.SYRIN ONE (17:58)
--- NOTE | 2019-05-27 19:02 | NUR ---
RN CLOSING NOTE / BACK FROM OR PATIENT ARRIVED BACK FROM SURGERY AT 1950. PATIENT IS AWAKE AND ALERT. WOUND VAC IN PLACE, SED ON BUT NO PUMP. RN CALLED CENTRAL SUPPLY FOR PUMP. PATIENT PULSES ARE PRESENT CIRCULATION PRESENT, LIMB IS SWOLLEN AND BRUISED. PATIENT HAS NO RESPIRATORY DISTRESS AT THIS TIME. NEW ORDERS PUT IN. WILL ENDORSE TO NIGHT NURSE.
--- NOTE | 2019-05-27 19:06 | NUR ---
RN POST OP HOA NURSE NOTE VITALS 148/83/ PULSE 109, TEMP 97.6, O2 SAT 97% RESPIRATIONS 18. PAIN 8/10 WILL GIVE PAIN MEDICATION.
[2019-05-27] MEDS: MORPHINE SULFATE INJ 4 MG/ML DISP.SYRIN IV PRN ×2 (19:14→23:16)
--- NOTE | 2019-05-27 19:30 | NUR ---
MS/RN NOTES PATIENT RECEIVED IN BED, NO S/S OF ACUTE DISTRESS NOTED. RESPIRATION EVEN AND UNLABORED. NO SOB NOTED. PATIENT ON O2 VIA NC, SATURATING 98%. PATIENT S/P SURGERY FOR INCISIONAL DRAINAGE ON LFT ELBOW. PULSES PRESENT, CIRCULATION PRESENT. CAPILLARY REFILL LESS THAN 3 SEC. PATIENT WAS GIVEN PATIENT MEDICATION ORDERED. DRESSING INTACT, WOUND VAC IN PLACE, PATENT DRAINING WELL. SOLEDAD MIDLINE NOTED WITH NO S/S OF INFECTION, WITH NS @ 75ML/HR. SAFETY MAINTAINED, BED AT THE LOWEST POSITION, LOCKED. HOB ELEVATED. WILL CONTINUE TO MONITOR PATIENT PER PLAN OF CARE
[2019-05-27 20:00] VITALS: BP 142/79
[2019-05-27] MEDS: INSULIN GLARGINE, 100 UNIT/ML CARTRIDGE SQ SCH (22:28)
--- NOTE | 2019-05-27 23:22 | NUR ---
MS/RN NOTES PERFORMED BLADDER SCAN AT THIS TIME. PATIENT NOTED WITH APPROXIMALLY 700ML URINE IN BLADDER. PATIENT REFUSED STRAIGHT CATH. ENCOURAGE PATIENT TO USE BED KHAN, PATIENT AGREED AND URINATED 550ML. WILL CONTINUE TO MONITOR
[2019-05-28] MEDS: IV NS 0.9% 1,000 ML IV PRN (01:17)
[2019-05-28] MEDS: diphenhydrAMINE HCL 50 MG/ML VIAL IV PRN ×2 (02:41→21:46)
[2019-05-28] MEDS: HYDROCODONE/APAP 5/325MG 1 EACH TABLET PO PRN (02:47)
[2019-05-28] MEDS: MORPHINE SULFATE INJ 4 MG/ML DISP.SYRIN IV PRN ×5 (04:11→19:03)
[2019-05-28] MEDS: VANCOMYCIN 0.75 GM in IV D5W 250 ML IV SCH ×3 (04:12→21:44)
--- NOTE | 2019-05-28 06:54 | NUR ---
MS/RN NOTES PATIENT IN BED SLEEPING AT THIS TIME, EASILY AROUSABLE. NO S/S OF ACUTE DISTRESS NOTED. RESPIRATION EVEN AND UNLABORED. NO SOB NOTED. SATURATING 98%, ON O2 AT 2LPM VIA N/C. PATIENT S/P SURGERY FOR INCISIONAL DRAINAGE ON LFT ELBOW. PULSES PRESENT, CIRCULATION PRESENT. CAPILLARY REFILL LESS THAN 3 SEC. DRESSING INTACT, WOUND VAC IN PLACE, PATENT DRAINING WELL WITH SEROSANGUINEOUS DRAINAGE . SOLEDAD MIDLINE NOTED WITH NO S/S OF INFECTION, INFILTRATION WITH NS @ 75ML/HR. SAFETY MAINTAINED, BED AT THE LOWEST POSITION, LOCKED. HOB ELEVATED. CALL LIGHT WITHIN REACH. WILL ENDORSE TO AM SHIFT NURSE FOR ELIAS
[2019-05-28 07:20] LABS: BASOPHILS # (AUTO) 0.1 /CMM (0.0-0.2); BASOPHILS % (AUTO) 0.5 % (0.0-2.0); EOSINOPHILS % (AUTO) 0.5 % (0.0-6.0); HEMATOCRIT 31 % (33-45); HEMOGLOBIN 10.5 g/dL (11.5-14.8); LYMPHOCYTES # (AUTO) 1.5 /CMM (0.8-4.8); MEAN CORPUSCULAR HGB CONC 34 g/dl (31.0-36.0); MEAN CORPUSCULAR VOLUME 91 fL (82-100); MONOCYTES % (AUTO) 7.3 % (2.0-12.0); NEUTROPHILS % (AUTO) 80.7 % (43.0-81.0); PLATELET COUNT (AUTO) 417 /CMM (150-450); RED BLOOD CELL COUNT(AUTO) 3.41 MIL/uL (4.0-5.2); WHITE BLOOD COUNT (AUTO) 13.6 K/uL (4.3-11.0)
--- NOTE | 2019-05-28 07:28 | NUR ---
WOUND CARE CONSULT: PT SEEN FOR LEFT ELBOW SURGICAL SITE WITH [employer] VAC. VAC FUNCTIONING WELL AT 125mmHg CONTINUOUS SETTING. SMALL AMOUNT OF SEROSANGUINOUS DRAINAGE ON CARLOS WRAP WHICH WAS CHANGED AFTER SOFT KERLIX ROLL GENTLY WRAPPED OVER VAC DRESSING. NO SIGN OF LEAKAGE AT THIS TIME. PT TOLERATED WELL. LESS SWELLING NOTED TO LEFT ARM/ELBOW THAN PREOP ASSESSMENT. ARM ELEVATED ON 2 PILLOWS. DISCUSSED SKIN PROTECTION AND VAC MANAGEMENT WITH NURSING STAFF. PT FOLLOWED BY SURGICAL TEAM. MD IN AGREEMENT WITH PLAN OF CARE. Addendum: 05/28/19 at 0732 by ALEC TALAVERA WNDNU Amended: Links added.
--- NOTE | 2019-05-28 07:30 | NUR ---
RN NOTES: RECEIVED PATIENT IN BED, AWAKE, ALERT AND ORIENTED X3. ABLE TO MAKE NEEDS KNOWN. NOT ON ANY FORM OF DISTRESS AT THIS TIME. ON ROOM AIR BREATHING UNLABORED. WITH FACIAL GRIMACE AND SIGHS, WAS ASKING IF PAIN MEDICATION IS DUE AT THIS TIME: WILL ADMINISTER DUE PAIN MEDICATION. LEFT UPPER ARM, ELEVATED WITH PILLOWS. WOUND VACUUM ATTACHED, SEALED AND INTACT. DRESSING CLEAN AND DRY. RIGHT UPPER ARM MIDLINE IN PLACE AND PATENT, DRESSING C/DI. IVF INFUSING WELL AT 75CC/HR. ENCOURAGE PATIENT TO VERBALIZE FEELINGS AND CONCERNS, TO CALL FOR HELP/ ASSISTANCE WHEN NECESSARY. CALL LIGHT PLACED WITHIN REACH. SAFETY AND FALL PRECAUTIONS OBSERVED AND MAINTAINED. WILL CONTINUE TO MONITOR
[2019-05-28 07:41] LABS: CALCIUM, SERUM 8.8 mg/dL (8.5-10.1); CREATININE 0.8 mg/dL (0.6-1.3); POTASSIUM 3.7 mmol/L (3.5-5.1)
[2019-05-28 08:00] VITALS: BP_SYST 129; BP_SYST 142; BP_SYST 169; BP_DIAS 77; BP_DIAS 79; BP_DIAS 80
--- NOTE | 2019-05-28 08:00 | NUR ---
RN NOTES SEEN AND EXAMINED BY Lucia FAUSTIN NP. LATER, MADE AWARE ABOUT PATIENT'S CURRENT SITUATION AND ALSO INFORMED ABOUT ELEVATED BLOOD PRESSURE. PER. GARCIA WILL REVIEW THE PATIENT'S CHART
[2019-05-28] MEDS: LACTOBACILLUS RHAMNOSUS GG 1 EACH CAP.SPRINK PO SCH ×2 (08:05→17:41)
[2019-05-28] MEDS: BLOOD SUGAR DIAGNOSTIC 1 EACH STRIP IN SCH ×4 (08:05→21:44)
[2019-05-28] MEDS: CEFTRIAXONE 1 G in IV D5W 50 ML IV SCH (08:05)
[2019-05-28] MEDS: INSULIN REGULAR, HUMAN 100 UNIT/ML 3 ML VIAL SQ PRN ×4 (08:07→21:50)
[2019-05-28 09:20] VITALS: BP 129/80
--- NOTE | 2019-05-28 09:20 | NUR ---
RN NOTES RECHECKED BLOOD PRESSURE AT THIS TIME AND WAS NOTED AT 120/80. HANDS OFF REPORTS GIVEN TO ELSA PRINCE FOR CONTINUITY OF CARE.
[2019-05-28] MEDS: GABAPENTIN 300 MG CAPSULE PO SCH ×2 (12:22→17:41)
[2019-05-28] MEDS: BENAZEPRIL HCL 20 MG TABLET PO SCH (12:23)
[2019-05-28 16:00] VITALS: BP 164/88
--- NOTE | 2019-05-28 19:19 | NUR ---
MS/RN ENTRY NOTES PATIENT IN BED, RESTING COMFORTABLY AT THIS TIME. NO S/S OF ACUTE DISTRESS NOTED. RESPIRATION EVEN AND UNLABORED. NO SOB NOTED. SATURATING 98%, ON O2 AT 2LPM VIA N/C. S/P SURGERY FOR INCISIONAL DRAINAGE ON LEFT ELBOW. PULSES PRESENT, CIRCULATION PRESENT. CAPILLARY REFILL LESS THAN 3 SEC. DRESSING INTACT, WOUND VAC IN PLACE, PATENT DRAINING WELL WITH SEROSANGUINEOUS DRAINAGE . SOLEDAD MIDLINE NOTED WITH NO S/S OF INFECTION. SAFETY MAINTAINED, BED AT THE LOWEST POSITION, LOCKED. HOB ELEVATED. CALL LIGHT WITHIN REACH. WILL CONTINUE TO MONITOR PATIENT PER PLAN OF CARE. Addendum: 05/28/19 at 1925 by WENDY ROBISON RN PRN PAIN MEDICATION WAS GIVEN, WILL CONTINUE TO MONITOR PATIENT PAIN LEVEL, LEFT ARM ELEVATED WITH PILOW AT ALL THE TIME.
[2019-05-28 20:00] VITALS: BP 137/73
[2019-05-28] MEDS: INSULIN GLARGINE, 100 UNIT/ML CARTRIDGE SQ SCH (21:49)
[2019-05-29] MEDS: MORPHINE SULFATE INJ 4 MG/ML DISP.SYRIN IV PRN ×6 (00:14→21:57)
[2019-05-29] MEDS: VANCOMYCIN 0.75 GM in IV D5W 250 ML IV SCH ×2 (04:03→20:48)
[2019-05-29 06:30] LABS: BASOPHILS # (AUTO) 0.1 /CMM (0.0-0.2); EOSINOPHILS % (AUTO) 4.1 % (0.0-6.0); HEMATOCRIT 33 % (33-45); HEMOGLOBIN 11.1 g/dL (11.5-14.8); LYMPHOCYTES # (AUTO) 2.3 /CMM (0.8-4.8); LYMPHOCYTES % (AUTO) 25.1 % (20.0-44.0); MEAN CORPUSCULAR HGB CONC 34 g/dl (31.0-36.0); MEAN CORPUSCULAR VOLUME 91 fL (82-100); MONOCYTES # (AUTO) 0.8 /CMM (0.1-1.30); MONOCYTES % (AUTO) 9.2 % (2.0-12.0); NEUTROPHILS # (AUTO) 5.6 /CMM (1.8-8.9); NEUTROPHILS % (AUTO) 60.6 % (43.0-81.0); PLATELET COUNT (AUTO) 448 /CMM (150-450); RED BLOOD CELL COUNT(AUTO) 3.58 MIL/uL (4.0-5.2); WHITE BLOOD COUNT (AUTO) 9.2 K/uL (4.3-11.0)
[2019-05-29 06:42] LABS: CALCIUM, SERUM 8.5 mg/dL (8.5-10.1); CREATININE 0.8 mg/dL (0.6-1.3); MAGNESIUM 1.7 mg/dL (1.8-2.4); PHOSPHORUS 3.8 mg/dL (2.5-4.9); POTASSIUM 3.6 mmol/L (3.5-5.1)
--- NOTE | 2019-05-29 06:44 | NUR ---
MS/RN ENTRY NOTES PATIENT IN BED, RESTING COMFORTABLY AT THIS TIME. NO S/S OF ACUTE DISTRESS NOTED. RESPIRATION EVEN AND UNLABORED. NO SOB NOTED. S/P SURGERY FOR INCISIONAL DRAINAGE ON LEFT ELBOW. PULSES PRESENT, CIRCULATION PRESENT. CAPILLARY REFILL LESS THAN 3 SEC. DRESSING INTACT, WOUND VAC IN PLACE, PATENT DRAINING WELL WITH SEROSANGUINEOUS DRAINAGE WITH OUTPUT OF 10 CC IN THIS SHIFT. [place] MIDLINE NOTED WITH NO S/S OF INFECTION. SAFETY MAINTAINED, BED AT THE LOWEST POSITION, LOCKED. HOB ELEVATED. CALL LIGHT WITHIN REACH. WILL ENDORSE TO AM SHIFT NURSE FOR ELIAS. Addendum: 05/29/19 at 0710 by WENDY ROBISON RN WOUND VAC DRAINAGE 20CC IN THIS SHIFT
--- NOTE | 2019-05-29 07:30 | NUR ---
MS/RN OPENING NOTES RECEIVED PATIENT IN BED RESTING COMFORTABLY. EASILY AROUSABLE. NO ACUTE DISTRESS AT THIS TIME. RESPIRATION EVEN AND UNLABORED. SKIN IS DRY WARM TO TOUCH. CONTINUE TO MONITOR PATIENT FOR S/P SURGERY FOR INCISIONAL DRAINAGE ON LEFT ELBOW. PULSES PRESENT, CIRCULATION PRESENT. CAPILLARY REFILL LESS THAN 3 SEC. DRESSING INTACT, WOUND VAC IN PLACE, PATENT DRAINING WELL WITH SEROSANGUINEOUS DRAINAGE. PATIENT ALSO NOTED WITH RIGHT UA MIDLINE WITH NO S/S OF INFECTION. INTACT AND PATENT. FLUSHING WELL. ALL NEEDS ANTICIPATED. KEPT CLEAN AND DRY. CALL LIGHT WITHIN REACHED. SAFETY MAINTAINED. BED LOCKED AND IN LOWEST POSITION. PLAN OF CARE DISCUSSED. WILL CONTINUE TO MONITOR CLOSELY.
[2019-05-29] MEDS: BLOOD SUGAR DIAGNOSTIC 1 EACH STRIP IN SCH ×4 (07:38→21:40)
[2019-05-29 08:00] VITALS: BP 143/68
[2019-05-29] MEDS: INSULIN REGULAR, HUMAN 100 UNIT/ML 3 ML VIAL SQ PRN ×2 (08:24→11:25)
[2019-05-29] MEDS: GABAPENTIN 300 MG CAPSULE PO SCH ×3 (08:25→16:37)
[2019-05-29] MEDS: LACTOBACILLUS RHAMNOSUS GG 1 EACH CAP.SPRINK PO SCH ×2 (08:25→16:37)
[2019-05-29] MEDS: CEFTRIAXONE 1 G in IV D5W 50 ML IV SCH (08:25)
[2019-05-29] MEDS: BENAZEPRIL HCL 20 MG TABLET PO SCH (08:26)
[2019-05-29] MEDS: Magnesium 1GM/D5W 100ML PREMIX 100 ML IV SCH ×2 (09:43→10:59)
[2019-05-29] MEDS ORDERED: PREGABALIN 25 MG CAPSULE PO SCH (13:00)
[2019-05-29] MEDS: diphenhydrAMINE HCL 50 MG/ML VIAL IV PRN ×2 (14:55→20:45)
[2019-05-29] MEDS ORDERED: VANCOMYCIN 0.75 GM in IV D5W 250 ML IV SCH (17:00)
--- NOTE | 2019-05-29 18:42 | NUR ---
MS/RN CLOSING NOTES PATIENT CONTINUES TO REMAIN IN STABLE CONDITION. PROVIDED COMFORT AND SAFETY THROUGHOUT THE SHIFT. PATIENT EASILY AROUSABLE. NO ACUTE DISTRESS AT THIS TIME. RESPIRATION EVEN AND UNLABORED. SKIN IS DRY WARM TO TOUCH. CONTINUE TO MONITOR PATIENT FOR S/P SURGERY FOR INCISIONAL DRAINAGE ON LEFT ELBOW. PULSES PRESENT, CIRCULATION PRESENT. CAPILLARY REFILL LESS THAN 3 SEC. DRESSING INTACT, WOUND VAC IN PLACE, PATENT DRAINING WELL WITH SEROSANGUINEOUS DRAINAGE. PATIENT ALSO NOTED WITH RIGHT UA MIDLINE WITH NO S/S OF INFECTION. INTACT AND PATENT. FLUSHING WELL. ALL NEEDS ANTICIPATED. KEPT CLEAN AND DRY. CALL LIGHT WITHIN REACHED. SAFETY MAINTAINED. BED LOCKED AND IN LOWEST POSITION. PLAN OF CARE DISCUSSED. WILL CONTINUE TO MONITOR CLOSELY.
--- NOTE | 2019-05-29 19:20 | NUR ---
MS1 RN NOTES RECEIVED ON BED SLEEPING,AROUSABLE TO VERBAL STIMULI,BREATHING NORMAL, NOT IN ANY FORM OF DISTRESS.DRESSING NOTED ON LEFT ARM,S/P WOUND DEBRIDEMENT ON 05/27,CONNECTED TO WOUND VAC,DRAINING SCANT OUTPUT.WITH RIGHT UPPER ARM MIDLINE NOTED.AMBULATE WITH STEADY GAIT PER REPORT.CALL LIGHT IN REACH.WILL CONTINUE TO MONITOR STATUS.
[2019-05-29 20:00] VITALS: BP 136/82
--- NOTE | 2019-05-29 20:19 | NUR ---
MS1 RN NOTES VANCOMYCIN TROUGH LEVEL AT 1999 WAS 18,WILL ADMINISTER SCHEDULED DOSE
--- NOTE | 2019-05-29 20:45 | NUR ---
MS1 RN NOTES FEELING ITCHY ALL OVER HER BODY,MEDICATED WITH BENADRYL 25MG IV ORDERED PRN.
--- NOTE | 2019-05-29 21:40 | NUR ---
MS1 RN NOTES ACCU-CHECK BLOOD SUGAR CHECKED 332,COVERED WITH 8 UNITS HUMULIN R PER SLIDING SCALE,ALONG WITH LANTUS 30 UNITS SCHEDULED,GIVEN SQ ON RIGHT DELTOID
[2019-05-29] MEDS: INSULIN GLARGINE, 100 UNIT/ML CARTRIDGE SQ SCH (21:45)
[2019-05-29] MEDS: *INSULIN REGULAR(HUMULIN R)HUM 100 UNIT/ML VIAL SQ PRN (21:46)
--- NOTE | 2019-05-29 21:57 | NUR ---
MS1 RN NOTES PAIN MANAGEMENT C/O PAIN 9/10 O PAIN ON LEFT ARM.MEDICATED WITH MORPHINE 4MG IV ORDERED FOR SEVERE PAIN.ENCOURAGED TO CALL FOR ASSISTANCE IB GOING TO THE BATHROOM OR BEDSIDE COMMODE, FOR FALL PRECAUTION.
[2019-05-30] MEDS: ZOLPIDEM TARTRATE 5 MG TABLET PO PRN ×2 (00:31→20:59)
--- NOTE | 2019-05-30 00:31 | NUR ---
MS1 RN NOTES C/O INSOMNIA,AMBIEN 5MG PO GIVEN PER PATIENT REQUEST.
[2019-05-30] MEDS: MORPHINE SULFATE INJ 4 MG/ML DISP.SYRIN IV PRN ×5 (01:09→19:55)
--- NOTE | 2019-05-30 01:09 | NUR ---
MS1 RN NOTES PAIN MANAGEMENT C/O PAIN ON LEFT ARM 8/10 ON PAIN SCALE.MORPHINE 4MG IV GIVEN ORDERED.
[2019-05-30 04:00] VITALS: BP 104/47
--- NOTE | 2019-05-30 06:16 | NUR ---
MS1 RN NOTES SLEPT WITH INTERVALS,PAIN MANAGEMENT EFFECTIVE.VANCOMYCIN TOLERATED WELL.WOUND REMAINS IN PLACE DRAINING SCANTY OUTPUT.IN NO ACUTE DISTRESS.WILL ENDORSE TO DAY NURSE FOR ELIAS.
[2019-05-30 06:41] LABS: BASOPHILS # (AUTO) 0.1 /CMM (0.0-0.2); EOSINOPHILS % (AUTO) 3.3 % (0.0-6.0); HEMATOCRIT 32 % (33-45); HEMOGLOBIN 10.9 g/dL (11.5-14.8); LYMPHOCYTES # (AUTO) 2.2 /CMM (0.8-4.8); MEAN CORPUSCULAR HGB CONC 34 g/dl (31.0-36.0); MEAN CORPUSCULAR VOLUME 91 fL (82-100); MONOCYTES # (AUTO) 0.9 /CMM (0.1-1.30); MONOCYTES % (AUTO) 10.1 % (2.0-12.0); NEUTROPHILS # (AUTO) 5.3 /CMM (1.8-8.9); NEUTROPHILS % (AUTO) 60.6 % (43.0-81.0); PLATELET COUNT (AUTO) 465 /CMM (150-450); RED BLOOD CELL COUNT(AUTO) 3.52 MIL/uL (4.0-5.2); WHITE BLOOD COUNT (AUTO) 8.8 K/uL (4.3-11.0)
[2019-05-30 07:05] LABS: CALCIUM, SERUM 8.8 mg/dL (8.5-10.1); CREATININE 0.9 mg/dL (0.6-1.3); POTASSIUM 3.7 mmol/L (3.5-5.1)
[2019-05-30] MEDS: BLOOD SUGAR DIAGNOSTIC 1 EACH STRIP IN SCH ×4 (07:54→22:27)
[2019-05-30] MEDS: INSULIN GLARGINE, 100 UNIT/ML CARTRIDGE SQ SCH ×2 (07:59→22:29)
[2019-05-30 08:00] VITALS: BP_SYST 153; BP_DIAS 83; BP_DIAS 88
[2019-05-30] MEDS: *INSULIN REGULAR(HUMULIN R)HUM 100 UNIT/ML VIAL SQ PRN ×2 (08:00→22:35)
[2019-05-30] MEDS: CEFTRIAXONE 1 G in IV D5W 50 ML IV SCH (08:01)
[2019-05-30] MEDS: GABAPENTIN 300 MG CAPSULE PO SCH ×4 (08:12→16:24)
[2019-05-30] MEDS: LACTOBACILLUS RHAMNOSUS GG 1 EACH CAP.SPRINK PO SCH ×2 (08:13→16:24)
[2019-05-30] MEDS: BENAZEPRIL HCL 20 MG TABLET PO SCH (08:13)
[2019-05-30] MEDS: diphenhydrAMINE HCL 50 MG/ML VIAL IV PRN ×2 (10:04→20:42)
[2019-05-30] MEDS: VANCOMYCIN 0.75 GM in IV D5W 250 ML IV SCH (10:04)
[2019-05-30] MEDS: ASPIRIN 81 MG TAB.CHEW PO SCH (12:40)
[2019-05-30] MEDS: INSULIN REGULAR, HUMAN 100 UNIT/ML 3 ML VIAL SQ PRN ×2 (12:51→19:47)
[2019-05-30 14:00] VITALS: BP 112/58
[2019-05-30] MEDS ORDERED: CLINDAMYCIN IV RTU IN D5W 900 MG/50 ML PIGGYBACK IV SCH (17:00)
[2019-05-30] MEDS: RIFAMPIN 300 MG CAPSULE PO SCH (19:34)
[2019-05-30] MEDS: CLINDAMYCIN 900 MG in IV D5W 50 ML IV SCH (19:34)
--- NOTE | 2019-05-30 19:55 | NUR ---
RN NOTE RN [place]/TAMEKA CHECKED BLOOD PRESSURE PRIOR TO ADMINISTRATION OF MEDICATION, BLOOD PRESSURE OF 177/88, HEART RATE 109 NOTED, WILL CONTINUE TO MONITOR PATIENT
[2019-05-30 20:00] VITALS: BP 177/88
[2019-05-31] MEDS: MORPHINE SULFATE INJ 4 MG/ML DISP.SYRIN IV PRN ×5 (00:21→20:01)
[2019-05-31] MEDS: CLINDAMYCIN 900 MG in IV D5W 50 ML IV SCH ×3 (01:46→16:22)
[2019-05-31] MEDS: diphenhydrAMINE HCL 50 MG/ML VIAL IV PRN ×2 (02:43→20:18)
[2019-05-31 07:08] LABS: BASOPHILS # (AUTO) 0.1 /CMM (0.0-0.2); BASOPHILS % (AUTO) 0.9 % (0.0-2.0); EOSINOPHILS % (AUTO) 2.6 % (0.0-6.0); HEMATOCRIT 34 % (33-45); HEMOGLOBIN 11.5 g/dL (11.5-14.8); LYMPHOCYTES # (AUTO) 2.3 /CMM (0.8-4.8); LYMPHOCYTES % (AUTO) 17.7 % (20.0-44.0); MEAN CORPUSCULAR HGB CONC 34 g/dl (31.0-36.0); MEAN CORPUSCULAR VOLUME 91 fL (82-100); MONOCYTES % (AUTO) 8.2 % (2.0-12.0); NEUTROPHILS % (AUTO) 70.6 % (43.0-81.0); PLATELET COUNT (AUTO) 468 /CMM (150-450); RED BLOOD CELL COUNT(AUTO) 3.71 MIL/uL (4.0-5.2); WHITE BLOOD COUNT (AUTO) 12.7 K/uL (4.3-11.0)
[2019-05-31 07:16] LABS: CALCIUM, SERUM 8.8 mg/dL (8.5-10.1); CREATININE 0.9 mg/dL (0.6-1.3)
--- NOTE | 2019-05-31 07:45 | NUR ---
RN NOTE: RECEIVED PATIENT IN BED, ASLEEP BUT AROUSABLE WITH VERBAL CUES. RESPIRATION EVEN AND UNLABORED SATURATING 98% IN ROOM AIR. NO PAIN AT THIS TIME. 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 (L) ELBOW WOUND WAS NOTED WITH WOUND VAC WITH PRESSURE SET AT 125 MMHG AT CONTINUOUS SETTING. DRAINAGE CANISTER WAS NOTED WITH SEROSANGUINEOUS DRAINAGE. (R) UA MIDLINE NOTED PATENT AND INTACT. HOB ELEVATED. PATIENT WAS ABLE TO WALK TO THE BATHROOM AND HAS A BEDSIDE COMMODE. BED ALARMED AND LOCKED AT ALL TIMES. CALL LIGHT WITHIN REACH. NEEDS ANTICIPATED.
[2019-05-31 08:00] VITALS: BP 130/68
[2019-05-31] MEDS: BLOOD SUGAR DIAGNOSTIC 1 EACH STRIP IN SCH ×4 (08:04→22:27)
[2019-05-31] MEDS: INSULIN GLARGINE, 100 UNIT/ML CARTRIDGE SQ SCH ×2 (08:08→22:29)
[2019-05-31] MEDS: INSULIN REGULAR, HUMAN 100 UNIT/ML 3 ML VIAL SQ PRN ×3 (08:10→18:26)
[2019-05-31] MEDS: ASPIRIN 81 MG TAB.CHEW PO SCH (08:51)
[2019-05-31] MEDS: RIFAMPIN 300 MG CAPSULE PO SCH (08:51)
[2019-05-31] MEDS: BENAZEPRIL HCL 20 MG TABLET PO SCH (08:51)
[2019-05-31] MEDS: LACTOBACILLUS RHAMNOSUS GG 1 EACH CAP.SPRINK PO SCH ×2 (08:51→16:21)
[2019-05-31] MEDS: GABAPENTIN 300 MG CAPSULE PO SCH ×3 (08:51→16:21)
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
--- NOTE | 2019-05-31 10:08 | NUR ---
WOUND CARE: PT SEEN FOR [employer] VAC DRESSING CHANGE ON LEFT ELBOW SURGICAL WOUND. WOUND MEASURED, PHOTOGRAPHED AND CLEANSED WITH NS. SKIN PREP AND VAC DRAPE TO PERIWOUND, BLACK GRANUFOAM TO WOUND. VAC AT 125mmHg CONTINUOUS SETTING. CANISTER CHANGED WITH 110cc RED DRAINAGE IN OLD CANISTER. GENTLE KERLIX AND CARLOS WRAP APPLIED. PT TOLERATED WELL. WILL SEE PRN. Addendum: 05/31/19 at 1010 by ALEC TALAVERA WNDNU Amended: Links added.
[2019-05-31 16:00] VITALS: BP 128/66
[2019-05-31] MEDS: HYDROCODONE/APAP 5/325MG 1 EACH TABLET PO PRN (16:21)
--- NOTE | 2019-05-31 16:32 | NUR ---
RN NOTE: SPOKE WITH VIKASH DENNIS REGARDING THE PATIENT'S USED OF MORPHINE. PATIENT WAS OFFERED NORCO INITIALLY, BUT SHE ONLY WANTED TO TAKE MORPHINE. EXPLAINED TO THE PATIENT THE IMPORTANCE OF NOT GETTING DEPENDENT ON THE MORPHINE AND GETTING A PO PAIN MEDICATION LIKE THE NORCO. PATIENT INITIALLY WAS HESITANT, BUT SHE SAID "I WILL TRY THE NORCO." RECEIVED AN ORDER FROM VIKASH DENNIS TO CHANGE THE FREQUENCY OF THE CURRENT ORDER FOR MORPHINE. ORDER, NOTED AND CARRIED OUT. PATIENT MADE AWARE.
--- NOTE | 2019-05-31 19:30 | NUR ---
MS RN OPENING NOTE RECEIVED PATIENT IN BED RESTING COMFORTABLY. EASILY AROUSABLE. NO ACUTE DISTRESS AT THIS TIME. RESPIRATION EVEN AND UNLABORED. SKIN IS DRY WARM TO TOUCH. CONTINUE TO MONITOR PATIENT FOR S/P SURGERY FOR INCISIONAL DRAINAGE ON LEFT ELBOW. PULSES PRESENT, CIRCULATION PRESENT. CAPILLARY REFILL LESS THAN 3 SEC. DRESSING INTACT, WOUND VAC IN PLACE, PATENT DRAINING WELL WITH SEROSANGUINEOUS DRAINAGE. PATIENT ALSO NOTED WITH RIGHT UA MIDLINE WITH NO S/S OF INFILTRATION. INTACT AND PATENT. FLUSHING WELL. CALL LIGHT WITHIN REACHED. SAFETY MAINTAINED. BED LOCKED AND IN LOWEST POSITION. PLAN OF CARE DISCUSSED. WILL CONTINUE TO MONITOR CLOSELY.
[2019-05-31 20:00] VITALS: BP 157/80
[2019-05-31] MEDS: ZOLPIDEM TARTRATE 5 MG TABLET PO PRN (22:31)
[2019-05-31] MEDS: *INSULIN REGULAR(HUMULIN R)HUM 100 UNIT/ML VIAL SQ PRN (22:31)
[2019-06-01] MEDS: CLINDAMYCIN 900 MG in IV D5W 50 ML IV SCH ×3 (00:37→16:42)
[2019-06-01] MEDS: MORPHINE SULFATE INJ 4 MG/ML DISP.SYRIN IV PRN ×5 (02:12→20:01)
[2019-06-01 04:00] VITALS: BP 108/62
--- NOTE | 2019-06-01 06:51 | NUR ---
MS RN CLOSING NOTES PATIENT RESTING ON BED, AMBULATORY. PATIENT REFUSED BED BATH EXPLAINED ALL RISKS AND BENEFITS STILL REFUSED. PAIN IS WELL CONTROLLED WITH PAIN MEDICATION. NO RESPIRATORY DISTRESS. DRESSING INTACT, WOUND VAC IN PLACE, NO COMPLICATIONS. BED AT LOW/LOCKED POSITION, CALL LIGHT WITHIN REACH. WILL ENDORSE THE CARE TO THE UPCOMING SHIFT.
--- NOTE | 2019-06-01 07:30 | NUR ---
MS RN OPENING NOTE RECEIVED REPORT FROM PM NURSE. PATIENT IN BED RESTING COMFORTABLY. EASILY AROUSABLE. NO ACUTE DISTRESS AT THIS TIME. RESPIRATION EVEN AND UNLABORED. SKIN IS DRY WARM TO TOUCH. S/P SURGERY FOR INCISIONAL DRAINAGE ON LEFT ELBOW. PULSES PRESENT,CAPILLARY REFILL LESS THAN 3 SEC. DRESSING INTACT, WOUND VAC IN PLACE, PATENT DRAINING WELL WITH SEROSANGUINEOUS DRAINAGE. PATIENT ALSO NOTED WITH RIGHT UA MIDLINE WITH NO S/S OF INFILTRATION. INTACT AND PATENT. FLUSHING WELL. CALL LIGHT WITHIN REACHED. SAFETY MAINTAINED. BED LOCKED AND IN LOWEST POSITION. PLAN OF CARE DISCUSSED. WILL CONTINUE TO MONITOR CLOSELY.
[2019-06-01 07:46] LABS: BASOPHILS # (AUTO) 0.1 /CMM (0.0-0.2); BASOPHILS % (AUTO) 0.8 % (0.0-2.0); EOSINOPHILS % (AUTO) 2.9 % (0.0-6.0); HEMATOCRIT 33 % (33-45); HEMOGLOBIN 11.4 g/dL (11.5-14.8); LYMPHOCYTES # (AUTO) 1.9 /CMM (0.8-4.8); LYMPHOCYTES % (AUTO) 17.9 % (20.0-44.0); MEAN CORPUSCULAR HGB CONC 35 g/dl (31.0-36.0); MEAN CORPUSCULAR VOLUME 90 fL (82-100); MONOCYTES # (AUTO) 0.9 /CMM (0.1-1.30); MONOCYTES % (AUTO) 8.3 % (2.0-12.0); NEUTROPHILS # (AUTO) 7.4 /CMM (1.8-8.9); NEUTROPHILS % (AUTO) 70.1 % (43.0-81.0); PLATELET COUNT (AUTO) 454 /CMM (150-450); RED BLOOD CELL COUNT(AUTO) 3.64 MIL/uL (4.0-5.2); WHITE BLOOD COUNT (AUTO) 10.5 K/uL (4.3-11.0)
[2019-06-01] MEDS: INSULIN GLARGINE, 100 UNIT/ML CARTRIDGE SQ SCH ×2 (07:56→22:23)
[2019-06-01 08:00] VITALS: BP 102/50
[2019-06-01] MEDS: BLOOD SUGAR DIAGNOSTIC 1 EACH STRIP IN SCH ×4 (08:02→22:19)
[2019-06-01] MEDS: INSULIN REGULAR, HUMAN 100 UNIT/ML 3 ML VIAL SQ PRN ×3 (08:02→17:41)
[2019-06-01] MEDS: diphenhydrAMINE HCL 50 MG/ML VIAL IV PRN (08:09)
[2019-06-01] MEDS: RIFAMPIN 300 MG CAPSULE PO SCH (08:10)
[2019-06-01] MEDS: GABAPENTIN 300 MG CAPSULE PO SCH (08:11)
[2019-06-01] MEDS: LACTOBACILLUS RHAMNOSUS GG 1 EACH CAP.SPRINK PO SCH ×2 (08:11→16:40)
[2019-06-01] MEDS: ASPIRIN 81 MG TAB.CHEW PO SCH (08:11)
[2019-06-01] MEDS: BENAZEPRIL HCL 20 MG TABLET PO SCH (08:12)
[2019-06-01 08:47] LABS: CREATININE 0.9 mg/dL (0.6-1.3); MAGNESIUM 1.7 mg/dL (1.8-2.4); PHOSPHORUS 3.5 mg/dL (2.5-4.9); POTASSIUM 4.5 mmol/L (3.5-5.1)
[2019-06-01] MEDS: HYDROCODONE/APAP 5/325MG 1 EACH TABLET PO PRN ×2 (09:21→16:41)
[2019-06-01] MEDS ORDERED: Magnesium 1GM/D5W 100ML PREMIX PIGGYBACK IV ONE (11:00)
--- NOTE | 2019-06-01 11:49 | NUR ---
MS RN NOTE SEEN BY VIKASH RODRIGUEZ UPDATED ABOUT PATIENT CONDITION WITH LABS AND ELEVATED BLOOD SUGAR LEVEL. AND CT RESULT.MADE AWARE ABOUT GOOD URINE OUTPUT.GOT NEW ORDERS.
[2019-06-01] MEDS: Magnesium 1GM/D5W 100ML PREMIX 100 ML IV SCH ×2 (12:12→13:23)
[2019-06-01] MEDS: GABAPENTIN 400 MG CAPSULE PO SCH ×2 (12:12→16:40)
--- NOTE | 2019-06-01 12:30 | NUR ---
MS RN NOTE CALL MADE TO [facility] ,CONFIRMED PSYCH CONSULT ORDER.THEY TOLD THEY HAVE FACE SHEET.WAITING FOR EVAISHWARYA FROM [facility] UPDATED ABOUT PATIENT CONDITION.
--- NOTE | 2019-06-01 15:33 | NUR ---
MS RN CARE TRANSFER NOTE ENDORSED NIKI HUNETR FOR ELIAS.
--- NOTE | 2019-06-01 15:35 | NUR ---
RN NOTE: RECEIVED BEDSIDE REPORT FROM HOA ZEE RN FOR CONTINUITY OF CARE. PATIENT WAS SIDE LYING IN THE BED, AWAKE, ALERT AND VERBALLY RESPONSIVE. BREATHING EVENLY AND UNLABORED SATURATING 98% IN ROOM AIR. NO FACIAL GRIMACING OR PAIN NOTED. REMAINED ON CONTACT ISOLATION FOR MRSA ON THE (L) ELBOW WOUND. (R) UA MIDLINE NOTED PATENT AND INTACT. PENDING PSYCHIATRIC EVALUATION WITH DR. RUBY. BED ALARMED AND LOCKED AT ALL TIMES. CALL LIGHT WITHIN REACH. NEEDS ANTICIPATED.
[2019-06-01 16:00] VITALS: BP 143/88
[2019-06-01] MEDS: OLANZAPINE 5 MG TABLET PO SCH (16:40)
--- NOTE | 2019-06-01 16:50 | NUR ---
RN NOTE: DR. RUBY CAME BY AND ASSESSED THE PATIENT AT THE BEDSIDE. MD WAS INFORMED THAT PER HX, PATIENT HAS NO MEDICAL HISTORY OF PSYCHIATRIC DISORDER. NO PSYCHOTROPIC MEDICATIONS WAS ALSO STARTED ON THE PATIENT. PER MD, HE WILL START THE PATIENT ON ZYPREXA. PATIENT WAS AWARE AND WAS WILLING TO TAKE THE NEW MEDICATION.
--- NOTE | 2019-06-01 19:40 | NUR ---
RN NOTE: BEDSIDE REPORT GIVEN TO PM SHIFT NURSE FOR CONTINUITY OF CARE. REMAINED ON CONTACT ISOLATION FOR MRSA (L) ELBOW WOUND. (R) UA MIDLINE NOTED PATENT AND INTACT. Patient's wound vac on the (L) ELBOW REMAINED INTACT AND ON CONTINUOUS SETTING OF 125 MMHG.
--- NOTE | 2019-06-01 19:40 | NUR ---
RN NOTES RECEIVED PATIENT, AWAKE, ALERT, NO SIGNS OF ACUTE RESPIRATORY DISTRESS NOTED, IV ACCESS ON HER RIGHT UPPER ARM MIDLINE INTACT AND PATENT, SAFETY MEASURES IN PLACE, COMPLAINTS OF PAIN ON HER LEFT ELBOW, NONPHARMACOLOGICAL INTERVENTIONS INITIATED, ALL NEEDS ATTENDED, WILL CONTINUE TO MONITOR ACCORDINGLY.
[2019-06-01 20:00] VITALS: BP 132/73
[2019-06-01 20:35] VITALS: BP 132/73
[2019-06-01] MEDS: ZOLPIDEM TARTRATE 5 MG TABLET PO PRN (22:20)
[2019-06-01] MEDS: *INSULIN REGULAR(HUMULIN R)HUM 100 UNIT/ML VIAL SQ PRN (22:25)
[2019-06-02] MEDS: CLINDAMYCIN 900 MG in IV D5W 50 ML IV SCH ×3 (01:11→16:53)
[2019-06-02] MEDS: MORPHINE SULFATE INJ 4 MG/ML DISP.SYRIN IV PRN ×4 (02:00→18:06)
[2019-06-02 04:00] VITALS: BP 98/48
[2019-06-02 07:34] LABS: BASOPHILS # (AUTO) 0.1 /CMM (0.0-0.2); BASOPHILS % (AUTO) 0.9 % (0.0-2.0); HEMATOCRIT 32 % (33-45); LYMPHOCYTES # (AUTO) 2.2 /CMM (0.8-4.8); MEAN CORPUSCULAR HGB CONC 35 g/dl (31.0-36.0); MEAN CORPUSCULAR VOLUME 90 fL (82-100); MONOCYTES # (AUTO) 0.9 /CMM (0.1-1.30); MONOCYTES % (AUTO) 9.9 % (2.0-12.0); NEUTROPHILS # (AUTO) 5.7 /CMM (1.8-8.9); NEUTROPHILS % (AUTO) 61.2 % (43.0-81.0); PLATELET COUNT (AUTO) 430 /CMM (150-450); RED BLOOD CELL COUNT(AUTO) 3.54 MIL/uL (4.0-5.2); WHITE BLOOD COUNT (AUTO) 9.3 K/uL (4.3-11.0)
[2019-06-02 07:41] LABS: CALCIUM, SERUM 9.1 mg/dL (8.5-10.1); MAGNESIUM 2.1 mg/dL (1.8-2.4); PHOSPHORUS 6.4 mg/dL (2.5-4.9); POTASSIUM 4.6 mmol/L (3.5-5.1)
--- NOTE | 2019-06-02 07:42 | NUR ---
RN NOTES ALL NEEDS ATTENDED AND MET, SAFETY MEASURES IN PLACE, ENDORSED TO AM NURSE FOR CONTINUITY OF CARE.
--- NOTE | 2019-06-02 07:56 | NUR ---
RECIEVED ASLEEP AND NOTED THE WOUND VAC TO THE LEFT HAND IS ON ALARM AND WITH LEAK, DARIEN DOVE CALLED THE BUILDING ECONOMIST AND WILL COME TO CHECK ON IT,CHARGE NURSE ORDERED NOT TO TOUCH IT AND WAIT FOR THE CHARGE NURSE Addendum: 06/02/19 at 0759 by BHARATH GILMORE RN WOUND CARE TO FIX IT
[2019-06-02 08:00] VITALS: BP 165/79
[2019-06-02] MEDS: BLOOD SUGAR DIAGNOSTIC 1 EACH STRIP IN SCH ×3 (08:29→17:04)
[2019-06-02] MEDS: INSULIN GLARGINE, 100 UNIT/ML CARTRIDGE SQ SCH (08:35)
[2019-06-02] MEDS: INSULIN REGULAR, HUMAN 100 UNIT/ML 3 ML VIAL SQ PRN ×2 (08:39→12:31)
[2019-06-02] MEDS: RIFAMPIN 300 MG CAPSULE PO SCH (08:47)
[2019-06-02] MEDS: ASPIRIN 81 MG TAB.CHEW PO SCH (08:47)
[2019-06-02] MEDS: OLANZAPINE 5 MG TABLET PO SCH ×2 (08:47→16:58)
[2019-06-02 08:48] VITALS: BP 165/79
[2019-06-02] MEDS: BENAZEPRIL HCL 20 MG TABLET PO SCH (08:48)
[2019-06-02] MEDS: GABAPENTIN 400 MG CAPSULE PO SCH ×3 (08:48→16:58)
[2019-06-02] MEDS: diphenhydrAMINE HCL 50 MG/ML VIAL IV PRN (08:48)
[2019-06-02] MEDS: LACTOBACILLUS RHAMNOSUS GG 1 EACH CAP.SPRINK PO SCH ×2 (08:49→16:58)
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
[2019-06-02] MEDS ORDERED: DAKINS QUARTER STRENGTH (0.125%) 480 ML BOTTLE TOP SCH (11:00)
--- NOTE | 2019-06-02 11:14 | NUR ---
WOUND CARE CONSULT: [facility] VAC DISCONTINUED AT THIS TIME FOR PT DISCHARGE. VAC DRESSING REMOVED, WOUND CLEANSED WITH NS, QUARTER STRENGTH DAKINS MOISTENED-KERLIX APPLIED TO WOUND, COVERED WITH DRY GAUZE, WRAPPED WITH KERLIX AND BURN NET. PT TOLERATED WELL. PHOTO TAKEN. WILL SEE PRN. LOPEZ IN AGREEMENT WITH PLAN OF CARE. Addendum: 06/02/19 at 1116 by ALEC TALAVERA WNDNU Amended: Links added.
[2019-06-02] MEDS ORDERED: OLAN5TAB3 PO (15:31)
[2019-06-02] MEDS ORDERED: RIFA300C2 PO (15:31)
[2019-06-02] MEDS ORDERED: CLIN300C3 IV (15:31)
--- NOTE | 2019-06-02 15:44 | NUR ---
with orders for transfer to [facility],patient is aware, pictures of the wound on the left elbow taken and bilateral knee. report to be given to the lia for transfer
--- NOTE | 2019-06-02 16:19 | NUR ---
report given to Katarina for transfer to [facility]
--- NOTE | 2019-06-02 16:28 | NUR ---
report given to Katarina huff rn on duty. will go to 114 A. Addendum: 06/02/19 at 1643 by BHARATH GILMORE RN report given to another rn for continued care jag already given to the rn in [facility]
[2019-06-02] MEDS: HYDROCODONE/APAP 5/325MG 1 EACH TABLET PO PRN (16:37)
--- NOTE | 2019-06-02 16:45 | NUR ---
MS RN NOTES PT ELIAS REPORT GIVEN BY ELSA SINHA.PT IS ALERT/ORIENTED X3 WITH CONFUSION.ON RA TOLERATING WELL.CAN AMBULATE WELL WITH MINIMAL SUPERVISION.RIGHT UA MIDLINE PRESENT.BED IS IN LOW POSITION AND LOCKED,CALL LIGHT IS WITHIN REACH.WILL CONTINUE TO MONITOR THE PT.
--- NOTE | 2019-06-02 18:23 | NUR ---
MS BURR FILER NOTES [facility].ELSA SINHA GAVE THE REPORT TO ROBIN HUNTER IN THE FACILITY.ALL THE BELONGINGS HAS DONE WITH HOME MEDICATIONS.NO COMPLICATIONS NOTED.
== END 2019-06-02 18:14 | DRG 720 ==
LOC: ER 02:36 → TELE1 05:40 → TELE-TD 21:51 → TELE1 05-23 14:27 → MEDSG1 05-24 13:11
PROVIDERS: ATTEND Hospitalist
PROC: 05H533Z Insertion of Infusion Device into Right Subclavian Vein, Percutaneous Approach (ICD-10-PCS; 2019-05-23)
PROC: 0JBH0ZZ Excision of Left Lower Arm Subcutaneous Tissue and Fascia, Open Approach (ICD-10-PCS; principal; 2019-05-27)
DX: A41.9 Sepsis, unspecified organism (principal); E11.00 Type 2 diabetes mellitus with hyperosmolarity without nonketotic hyperglycemic-hyperosmolar coma (NKHHC); E11.42 Type 2 diabetes mellitus with diabetic polyneuropathy; E22.2 Syndrome of inappropriate secretion of antidiuretic hormone; M00.822 Arthritis due to other bacteria, left elbow; E11.65 Type 2 diabetes mellitus with hyperglycemia; E11.40 Type 2 diabetes mellitus with diabetic neuropathy, unspecified; N39.0 Urinary tract infection, site not specified; Z86.73 Personal history of transient ischemic attack (TIA), and cerebral infarction without residual deficits; Z79.4 Long term (current) use of insulin; E86.0 Dehydration; E83.39 Other disorders of phosphorus metabolism; E83.42 Hypomagnesemia; E87.6 Hypokalemia; L03.114 Cellulitis of left upper limb; F17.200 Nicotine dependence, unspecified, uncomplicated; E66.01 Morbid (severe) obesity due to excess calories; I25.10 Atherosclerotic heart disease of native coronary artery without angina pectoris; I10 Essential (primary) hypertension; N13.6 Pyonephrosis; Z59.0 Homelessness; Z87.442 Personal history of urinary calculi; Z91.19 Patient's noncompliance with other medical treatment and regimen; F29 Unspecified psychosis not due to a substance or known physiological condition; Z91.81 History of falling; M25.562 Pain in left knee; M25.561 Pain in right knee; M71.122 Other infective bursitis, left elbow; R93.5 Abnormal findings on diagnostic imaging of other abdominal regions, including retroperitoneum
CPT/HCPCS: 36415; 71045-TC; 73080-TC; 73222-TC; 73564-TC; 76882; 80048-TC; 80061-TC; 80076-TC; 80202-TC; 81000-TC; 82010-TC; 82962-TC; 83690-TC; 83735-TC; 83935-TC; 84100-TC; 84300-TC; 84443-TC; 84484-TC; 84702-TC; 84703-TC; 85025-TC; 85652-TC; 85730-TC; 86140-TC; 86850-TC; 87040-TC; 87070-TC; 87075-TC; 87081-TC; 87086-TC; 97116-TC; 97530-TC; A4217; A6403; G0378; J0330; J0696; J1100; J1170; J1200; J1815; J2060; J2250; J2270; J2405; J2704; J3370; J3475; J3480; J3490; J7030; J7050; J7060; Q0163

== ENCOUNTER 2019-10-05 23:26 | Inpatient (IN) | payer MEDICARE, OTHER ==
[~2019-10-05] VITALS: Ht 160 cm; Wt 64.4 kg
[~2019-10-05 23:26] MED LIST: ASPI-605 PO; BENA20TA9 PO; CLIN300C3 IV; DULO20CA PO; FAMO-131 PO; GABA-534 PO; INSU100V39 SQ; INSU100V7 SQ; MEMA5TAB PO; OLAN5TAB3 PO; PREG100C PO; RIFA300C2 PO; RISP3TAB14 PO; SIMV-46 PO; SITA100T PO; TAMS-12 PO; THIA100T88 PO
[2019-10-06] VITALS (38 sets, daily range): BP systolic 91–139; BP diastolic 46–78
--- NOTE | 2019-10-06 02:34 | NUR ---
CELL LINERSAIL MAKER NOTE PATIENT RECEIVED FROM / DIVERNON IN [facility]. PATIENT A/O X 4 SLIGHTLY DROWSY, WITH COMPLAINTS OF ABD PAIN. PATIENT HR ST ON THE MONITOR WITH A BP OF 134/77 HR 115. PATIENT DENIES CHEST PAIN. PATIENT SATURATION 100% ON ROOM AIR. PATIENT DENIES SOB. LUNG SOUNDS CLEAR TO AUSCULTATION. PATIENT HAS RIGHT IJ TLC PATENT AND INTACT NO S/S OF INFECTION OR INFILTRATION. PATIENT NOTED TO HAVE ABRASION ON L ELBOW. NO /S OF BLEEDING. RN WILL CONTINUE TO MONITOR. MD AWARE OF ABD PAIN. REVIEWED CT OF STOMACH, AND WILL ORDER ABX FOR POSSIBLE UTI, POSSIBLE CASUE OF PAIN. BS CHECK 319, PER WILSTEIN ORDERS PATIENT WILL START INSULIN DRIP AT 6 UNITS AND HOURS WILL TITIRATE NEEDED WITH 1 HOUR ACCU CHECK. SAFETY PRECAUTIONS IN PLACE GOALS AND POC DISCUSSED WITH PATIENT. CALL LIGHT INSTRUCTIONS GIVEN. PATIENT VERBALIZE UNDERSTANDING. RN WILL CONTINUE TO MONITOR FOR CHANGES.
[2019-10-06] MEDS ORDERED: MAGNESIUM HYDROXIDE 30 ML UDC PO PRN (03:00)
[2019-10-06] MEDS ORDERED: Z GUARD REMEDY 2 OZ OINT TP PRN (03:00)
[2019-10-06] MEDS ORDERED: INSULIN REGULAR, HUMAN 100 UNIT in IV NS 0.9% 99 ML IV PRN ×2 (03:00)
[2019-10-06] MEDS: IV NS 0.9% 1,000 ML IV SCH ×3 (03:00→20:45)
[2019-10-06] MEDS: PANTOPRAZOLE 40 MG VIAL IV SCH ×3 (03:00→17:04)
[2019-10-06] MEDS ORDERED: MAG HYDROX/AL HYDROX/SIMETH 30 ML UDC PO PRN (03:00)
[2019-10-06] MEDS ORDERED: BLOOD SUGAR DIAGNOSTIC 1 EACH STRIP IN SCH ×2 (03:00→12:00)
--- NOTE | 2019-10-06 03:00 | NUR ---
HISTOLOGY TECH NOTE PATIENT EXPRESSES WISHES THAT SHE DOESN'T HAVE ANY FAMILY THAT NEEDS TO BE NOTIFIED OF HER HOSPITAL STAY. SHE DOESN'T WANT ANYONE TO KNOW SHE IS HERE.
[2019-10-06] MEDS ORDERED: INSULIN REGULAR, HUMAN 100 UNIT/ML 3 ML VIAL ONE (03:10)
[2019-10-06 03:14] LABS: ABG OXYGEN SATURATION 95.2 % (92.0-98.5); O2Hb 93.9 % (94.0-97.0); SITE, ABG Left Radial
[2019-10-06] MEDS ORDERED: INSULIN NPH/REG 70/30 MIX INJ 100 UNIT/ML VIAL SQ ONE (03:16)
[2019-10-06] MEDS: BLOOD SUGAR DIAGNOSTIC 1 EACH STRIP IN SCH ×10 (03:18→22:36)
[2019-10-06] MEDS ORDERED: INSULIN NPH, HUMAN ISOPHANE 100 UNIT/ML VIAL SQ ONE (03:21)
[2019-10-06] MEDS: HYDROCODONE/APAP 5/325MG 1 EACH TABLET PO PRN ×3 (03:21→18:16)
--- NOTE | 2019-10-06 03:22 | NUR ---
MAIL LIST PROCESSOR NOTE PATIENT RECEIVED 80 MG OF PROTONIX AT [facility], VIKASH GARBER NOTIFIED WILL HOLD TONIGHT DOSE OF PROTONIX AND RESUME AT 9 AM.
[2019-10-06 03:23] LABS: BASOPHILS % (AUTO) 0.1 % (0.0-2.0); HEMATOCRIT 35 % (33-45); LYMPHOCYTES # (AUTO) 0.9 /CMM (0.8-4.8); LYMPHOCYTES % (AUTO) 7.2 % (20.0-44.0); MEAN CORPUSCULAR HGB CONC 34 g/dl (31.0-36.0); MEAN CORPUSCULAR VOLUME 95 fL (82-100); MONOCYTES # (AUTO) 0.8 /CMM (0.1-1.30); MONOCYTES % (AUTO) 6.6 % (2.0-12.0); NEUTROPHILS # (AUTO) 10.4 /CMM (1.8-8.9); NEUTROPHILS % (AUTO) 86.1 % (43.0-81.0); PLATELET COUNT (AUTO) 219 /CMM (150-450); RED BLOOD CELL COUNT(AUTO) 3.67 MIL/uL (4.0-5.2); WHITE BLOOD COUNT (AUTO) 12.1 K/uL (4.3-11.0)
[2019-10-06] MEDS ORDERED: INSULIN REGULAR, HUMAN 100 UNIT/ML 10 ML VIAL ONE (03:24)
[2019-10-06] MEDS ORDERED: LEVOFLOXACIN 500 MG /D5W 100ML 100 ML IV ONE (03:28)
[2019-10-06] MEDS: LEVOFLOXACIN 500 MG /D5W 100ML 500 MG in PREMIX 1 EA IV SCH (03:29)
[2019-10-06] MEDS ORDERED: CEFTRIAXONE 1 G in IV D5W 50 ML IV SCH (03:30)
[2019-10-06 03:32] LABS: CALCIUM, SERUM 7.8 mg/dL (8.5-10.1); CREATININE 1.2 mg/dL (0.6-1.3)
[2019-10-06 03:35] LABS: MAGNESIUM 2.5 mg/dL (1.8-2.4)
[2019-10-06] MEDS: ONDANSETRON HCL/PF 4 MG/2 ML VIAL IVP PRN ×2 (03:39→10:45)
--- NOTE | 2019-10-06 03:44 | NUR ---
FORESTRY AID TECHNICIAN NOTE MAURICIO PLACED WITH STERILE TECHNIQUE 700 MLS OF CLOUDY LIGHT YELLOW URINE COLLECTED URINE FOR URINE CULTURE COLLECTED
[2019-10-06 03:46] LABS: THYROID STIMULATING HORMONE 0.958 uIU/mL (0.358-3.74)
[2019-10-06 04:10] LABS: ABG BASE EXCESS -9.2 mmol/L; ABG PCO2 27.4 mmHg (35.0-45.0); ABG PH 7.353 (7.350-7.450); ABG PO2 80.4 mmHg (75.0-100.0); AaDO2 36.5 mmHg; COHb 1.1 % (0.5-1.5); MetHb 0.3 % (0.0-1.5); VENT MODE, BG ROOM AIR 21%
[2019-10-06 04:52] LABS: APPEARANCE,URINE SLIGHTLY CLOUDY (CLEAR); COLOR,URINE YELLOW (YELLOW); PH,URINE 5.5 (5.0-8.0)
[2019-10-06 04:53] LABS: BILIRUBIN,URINE NEGATIVE (NEGATIVE); BLOOD, URINE 3+ Ery/uL (NEGATIVE); KETONES,URINE NEGATIVE (NEGATIVE); PROTEIN,URINE TRACE mg/dl (NEGATIVE); UGLUCOSE 1000 MG/DL mg/dL (NEGATIVE); UROBILINOGEN,URINE 0.2 EU/dL (0.2)
[2019-10-06 04:54] LABS: LEUKOCYTE ESTERASE ,URINE NEGATIVE (NEGATIVE); NITRITE, URINE NEGATIVE (NEGATIVE)
[2019-10-06 05:07] LABS: BACTERIA,URINE Few /HPF (None Seen); RBC,URINE TOO NUMEROUS TO COUN /HPF (0-2); SQUAMOUS EPITHELIAL CELL,UR Few /HPF (None Seen)
--- NOTE | 2019-10-06 07:05 | NUR ---
RN NOTES RECEIVED PT ON BED, A/Ox4, ON RA , RESPIRATION EVEN AND UNLABORED , ON TELE ST HR IN NS AT 125CC/ HR AND INSULIN GTT RUNNING VIA R IJ TLC ,SITE CLEAN, DRY AND INTACT, SR UP x3 , CALL LIGHT WITHIN EASY REACH, BED LOCKED AND IN LOWEST POSITION, CONTINUE TO MONITOR .
[2019-10-06] MEDS: RIFAMPIN 300 MG CAPSULE PO SCH (08:16)
[2019-10-06] MEDS: PREGABALIN 100 MG CAPSULE PO SCH ×3 (08:16→17:09)
[2019-10-06] MEDS: THIAMINE HCL 100 MG TABLET PO SCH (08:16)
[2019-10-06] MEDS: OLANZAPINE 5 MG TABLET PO SCH ×2 (08:16→17:09)
[2019-10-06] MEDS: TAMSULOSIN 0.4 MG CAP.SR.24H PO SCH ×2 (08:16→17:06)
[2019-10-06] MEDS: risperiDONE 1 MG TABLET PO SCH ×2 (08:16→17:08)
[2019-10-06] MEDS: GABAPENTIN 300 MG CAPSULE PO SCH (08:16)
[2019-10-06] MEDS: FAMOTIDINE (20 MG) 20 MG TABLET PO SCH (08:17)
[2019-10-06] MEDS: DULOXETINE HCL 20 MG CAPSULE.DR PO SCH (08:17)
[2019-10-06] MEDS: BENAZEPRIL HCL 20 MG TABLET PO SCH ×3 (08:17→17:06)
[2019-10-06] MEDS: PHENAZOPYRIDINE HCL 200 MG TABLET PO PRN ×2 (08:19→20:45)
[2019-10-06] MEDS: INSULIN LISPRO/ASPART 100 UNIT/ML CARTRIDGE SQ SCH ×3 (08:51→18:07)
[2019-10-06] MEDS ORDERED: DEXTROSE 50%-WATER 50 ML DISP.SYRIN IV PRN (10:00)
[2019-10-06 10:09] LABS: IRON, SERUM 17 ug/dl (50-175); TOTAL IRON BINDING CAPACITY 265 ug/dl (250-450)
[2019-10-06 11:00] LABS: BASOPHILS # (AUTO) 0.1 /CMM (0.0-0.2); BASOPHILS % (AUTO) 1.1 % (0.0-2.0); EOSINOPHILS % (AUTO) 1.1 % (0.0-6.0); HEMATOCRIT 31 % (33-45); HEMOGLOBIN 10.8 g/dL (11.5-14.8); LYMPHOCYTES # (AUTO) 1.4 /CMM (0.8-4.8); LYMPHOCYTES % (AUTO) 14.2 % (20.0-44.0); MEAN CORPUSCULAR HGB CONC 35 g/dl (31.0-36.0); MEAN CORPUSCULAR VOLUME 95 fL (82-100); MONOCYTES # (AUTO) 0.7 /CMM (0.1-1.30); MONOCYTES % (AUTO) 6.4 % (2.0-12.0); NEUTROPHILS # (AUTO) 7.9 /CMM (1.8-8.9); NEUTROPHILS % (AUTO) 77.2 % (43.0-81.0); PLATELET COUNT (AUTO) 192 /CMM (150-450); RED BLOOD CELL COUNT(AUTO) 3.29 MIL/uL (4.0-5.2); WHITE BLOOD COUNT (AUTO) 10.2 K/uL (4.3-11.0)
[2019-10-06] MEDS ORDERED: DIATR MEGLU/DIATRIZOATE SODIUM 30 ML BOTTLE (GASTROGRAPHIN) ONE (11:18)
--- NOTE | 2019-10-06 12:00 | NUR ---
RN NOTES PT KEPT NPO FOR CT OF ABD. VSS STABLE, CONTINUE TO MONITOR.
[2019-10-06] MEDS ORDERED: K PHOS NEUTRAL 250 MG TABLET PO ONE (13:00)
[2019-10-06] MEDS: INSULIN REGULAR, HUMAN 100 UNIT/ML 3 ML VIAL SQ PRN ×3 (14:04→22:36)
--- NOTE | 2019-10-06 16:30 | NUR ---
MS RN NOTE: RECEIVED PATIENT FROM ELSA BOGGS FROM ICU FOR CONTINUITY OF CARE.
--- NOTE | 2019-10-06 16:30 | NUR ---
RN NOTES PT TRANSFERRED TO ROOM 113-2 , MS STATUS ALONG WITH ALL HER BELONGING IN STABLE CONDITION, REPORT GIVEN TO AMADOR HUNTER FOR CONTINUITY OF CARE.
[2019-10-06] MEDS: METRONIDAZOLE 500 MG TABLET PO SCH (17:06)
[2019-10-06] MEDS: ACETAMINOPHEN 325 MG TABLET PO PRN (17:06)
--- NOTE | 2019-10-06 17:19 | NUR ---
MS RN NOTE: INFORMED PHARMACY OF 2 TABS RISPERIDONE REMAINING ON PYXIS MACHINE BECAUSE NURSE PULLED OUT EXACTLY 3 TABLES AND NOT 5 TABLETS IT MAY HAVE SHOWN.
[2019-10-06 19:07] LABS: BASOPHILS % (AUTO) 0.4 % (0.0-2.0); EOSINOPHILS % (AUTO) 1.4 % (0.0-6.0); HEMATOCRIT 29 % (33-45); LYMPHOCYTES % (AUTO) 11.6 % (20.0-44.0); MEAN CORPUSCULAR HGB CONC 35 g/dl (31.0-36.0); MEAN CORPUSCULAR VOLUME 95 fL (82-100); MONOCYTES # (AUTO) 0.6 /CMM (0.1-1.30); MONOCYTES % (AUTO) 6.4 % (2.0-12.0); NEUTROPHILS # (AUTO) 7.1 /CMM (1.8-8.9); NEUTROPHILS % (AUTO) 80.2 % (43.0-81.0); PLATELET COUNT (AUTO) 175 /CMM (150-450); RED BLOOD CELL COUNT(AUTO) 3.02 MIL/uL (4.0-5.2); WHITE BLOOD COUNT (AUTO) 8.9 K/uL (4.3-11.0)
--- NOTE | 2019-10-06 19:30 | NUR ---
MS RN CLOSING NOTE: PATIENT IN BED AND DOZING INTERMITTENTLY. PAIN MANAGEMENT ONGOING, WITH RIGHT NECK MIDLINE IV SITE WITH 3 LUMEN AND INFUSION OF NS @ 125MLS/HR INFUSING WELL. SITE PATENT, CLEAN AND DRY. WITH MAURICIO CATHETER AND DRAINING YELLOW/ORANGE COLOR. BED LOCKED, LOW AND AT SEMI-STRATTON'S POSITION. ENDORSED TO ONCOMING SHIFT FOR ELIAS.
[2019-10-06] MEDS ORDERED: INSULIN GLARGINE, 100 UNIT/ML CARTRIDGE SQ SCH ×2 (22:00)
[2019-10-06] MEDS: INSULIN GLARGINE, 100 UNIT/ML CARTRIDGE SQ SCH (22:29)
[2019-10-06] MEDS: SIMVASTATIN 20 MG TABLET PO SCH (22:36)
[2019-10-07] MEDS: METRONIDAZOLE 500 MG TABLET PO SCH ×5 (01:19→23:20)
[2019-10-07] MEDS: HYDROCODONE/APAP 5/325MG 1 EACH TABLET PO PRN ×2 (01:19→09:07)
[2019-10-07] MEDS: IV NS 0.9% 1,000 ML IV SCH (02:36)
[2019-10-07] MEDS: LEVOFLOXACIN 500 MG /D5W 100ML 500 MG in PREMIX 1 EA IV SCH (02:42)
[2019-10-07 04:00] VITALS: BP 102/48
[2019-10-07] MEDS: ACETAMINOPHEN 325 MG TABLET PO PRN (05:06)
[2019-10-07] MEDS: INSULIN REGULAR, HUMAN 100 UNIT/ML 3 ML VIAL SQ PRN ×2 (05:18→22:27)
[2019-10-07] MEDS: BLOOD SUGAR DIAGNOSTIC 1 EACH STRIP IN SCH ×4 (05:19→22:27)
[2019-10-07] MEDS: INSULIN LISPRO/ASPART 100 UNIT/ML CARTRIDGE SQ SCH ×3 (05:22→18:24)
--- NOTE | 2019-10-07 06:03 | NUR ---
Walking well with standby assist only. Bloodwork sent to lab. Two episodes of unobtainable brbpr for c.diff specimen. Will endorse to day team registered nurse. Khalif Barbosa RN
[2019-10-07 06:40] LABS: BASOPHILS % (AUTO) 0.2 % (0.0-2.0); EOSINOPHILS % (AUTO) 1.1 % (0.0-6.0); HEMATOCRIT 30 % (33-45); HEMOGLOBIN 10.3 g/dL (11.5-14.8); LYMPHOCYTES # (AUTO) 0.6 /CMM (0.8-4.8); LYMPHOCYTES % (AUTO) 5.5 % (20.0-44.0); MEAN CORPUSCULAR HGB CONC 35 g/dl (31.0-36.0); MEAN CORPUSCULAR VOLUME 96 fL (82-100); MONOCYTES # (AUTO) 0.9 /CMM (0.1-1.30); MONOCYTES % (AUTO) 8.5 % (2.0-12.0); NEUTROPHILS # (AUTO) 9.2 /CMM (1.8-8.9); NEUTROPHILS % (AUTO) 84.7 % (43.0-81.0); PLATELET COUNT (AUTO) 185 /CMM (150-450); RED BLOOD CELL COUNT(AUTO) 3.11 MIL/uL (4.0-5.2); WHITE BLOOD COUNT (AUTO) 10.8 K/uL (4.3-11.0)
[2019-10-07 06:59] LABS: CALCIUM, SERUM 7.4 mg/dL (8.5-10.1); CREATININE 0.9 mg/dL (0.6-1.3); MAGNESIUM 1.9 mg/dL (1.8-2.4); PHOSPHORUS 1.5 mg/dL (2.5-4.9); POTASSIUM 3.2 mmol/L (3.5-5.1)
--- NOTE | 2019-10-07 07:08 | NUR ---
Endorsement to ELSA Ness. Khalif Barbosa RN
[2019-10-07 08:00] VITALS: BP 103/47
[2019-10-07] MEDS: PREGABALIN 100 MG CAPSULE PO SCH ×3 (08:32→17:22)
[2019-10-07] MEDS: PANTOPRAZOLE 40 MG VIAL IV SCH ×2 (08:32→17:19)
[2019-10-07] MEDS: DULOXETINE HCL 20 MG CAPSULE.DR PO SCH (08:36)
[2019-10-07] MEDS: BENAZEPRIL HCL 20 MG TABLET PO SCH ×3 (08:37→17:28)
[2019-10-07] MEDS: THIAMINE HCL 100 MG TABLET PO SCH (08:38)
[2019-10-07] MEDS: TAMSULOSIN 0.4 MG CAP.SR.24H PO SCH ×2 (08:38→17:22)
[2019-10-07] MEDS: GABAPENTIN 300 MG CAPSULE PO SCH (08:38)
[2019-10-07] MEDS: OLANZAPINE 5 MG TABLET PO SCH ×2 (08:38→17:23)
[2019-10-07] MEDS: risperiDONE 1 MG TABLET PO SCH ×2 (08:39→17:26)
[2019-10-07] MEDS: FAMOTIDINE (20 MG) 20 MG TABLET PO SCH (08:39)
[2019-10-07] MEDS: RIFAMPIN 300 MG CAPSULE PO SCH (09:07)
[2019-10-07] MEDS: ONDANSETRON HCL/PF 4 MG/2 ML VIAL IVP PRN (09:08)
--- NOTE | 2019-10-07 10:15 | NUR ---
RN NOTES ACCORDING TO DR LAURA James MORKATEYINE IV Q4 HR 2 MG FOR PAIN .
[2019-10-07] MEDS ORDERED: NEUTRA PHOS 1 POWD.PACKET PO ONE (11:00)
[2019-10-07] MEDS: MORPHINE SULFATE INJ 2 MG/ML DISP.SYRIN IV PRN ×2 (11:47→17:22)
[2019-10-07 12:04] LABS: BASOPHILS % (AUTO) 0.4 % (0.0-2.0); EOSINOPHILS % (AUTO) 0.8 % (0.0-6.0); HEMATOCRIT 29 % (33-45); HEMOGLOBIN 10.1 g/dL (11.5-14.8); LYMPHOCYTES # (AUTO) 0.7 /CMM (0.8-4.8); LYMPHOCYTES % (AUTO) 6.4 % (20.0-44.0); MEAN CORPUSCULAR HGB CONC 35 g/dl (31.0-36.0); MEAN CORPUSCULAR VOLUME 96 fL (82-100); MONOCYTES % (AUTO) 9.1 % (2.0-12.0); NEUTROPHILS # (AUTO) 9.4 /CMM (1.8-8.9); NEUTROPHILS % (AUTO) 83.3 % (43.0-81.0); PLATELET COUNT (AUTO) 183 /CMM (150-450); RED BLOOD CELL COUNT(AUTO) 3.04 MIL/uL (4.0-5.2); WHITE BLOOD COUNT (AUTO) 11.3 K/uL (4.3-11.0)
[2019-10-07] MEDS: Potassium Chloride 40 MEQ in IV NS 0.9% 1,000 ML IV SCH ×2 (12:58→20:45)
[2019-10-07] MEDS: Potassium Phosphate meq 11 MEQ in IV NS 0.9% 100 ML IV SCH ×2 (13:20→15:51)
[2019-10-07 14:33] LABS: EOSINOPHILS % (MANUAL) 1 % (0-4); LYMPHOCYTES % (MANUAL) 10 % (16-48); MONOCYTES % (MANUAL) 10 % (0-11.0)
[2019-10-07 14:42] LABS: NEUTROPHILS % (MANUAL) 70 (42-76)
[2019-10-07 14:43] LABS: BAND % (MANUAL) 9 % (0.0-5.0)
--- NOTE | 2019-10-07 15:14 | NUR ---
MS RN NOTES STOOL SAMPLE TAKEN TO LAB BY ANUSHA HUNTER . FORM COMPLETED.
[2019-10-07 16:00] VITALS: BP 105/62
--- NOTE | 2019-10-07 19:00 | NUR ---
MS RN NOTES POTASSIUM CHLORIDE BAG HAD 150 ML LEFT AND ENDORSED TO METERMAN NURSE TO ADMINISTER THE BAG AFTER ITS IS DONE. PATIENT A/OX 4 NO SOB AND DISCOMFORT NOTED AT THIS TIME. CALL LIGHT WITHIN REACH , SAFETY PRECAUTIONS IMPLEMENTED PER HOSPITAL POLICY.
--- NOTE | 2019-10-07 19:25 | NUR ---
BEDSIDE REPORT RECIEVED FROM RENETTA HUNTER. PATIENT IN BED AX0X4 IVF INFUSING TO RIGHT JUGULAR CENTRAL LINE DRESSING INTACT WITH NO S/S OF COMPLICATIONS. SAFETY PRECAUTIONS IN PLACE BED DOWN LOCKED SRX2. WILL CONT TO MONITOR.
[2019-10-07 19:31] LABS: OCCULT BLOOD STOOL POSITIVE (NEGATIVE)
[2019-10-07 20:00] VITALS: BP 116/55
[2019-10-07 20:02] VITALS: BP 116/55
[2019-10-07] MEDS: INSULIN GLARGINE, 100 UNIT/ML CARTRIDGE SQ SCH (22:27)
[2019-10-07] MEDS: SIMVASTATIN 20 MG TABLET PO SCH (22:30)
[2019-10-08] MEDS ORDERED: INSULIN REGULAR, HUMAN 100 UNIT/ML 3 ML VIAL ONE (02:12)
[2019-10-08] MEDS: Potassium Chloride 40 MEQ in IV NS 0.9% 1,000 ML IV SCH ×3 (02:15→20:31)
[2019-10-08] MEDS: MORPHINE SULFATE INJ 2 MG/ML DISP.SYRIN IV PRN ×3 (02:27→17:09)
[2019-10-08] MEDS: LEVOFLOXACIN 500 MG /D5W 100ML 500 MG in PREMIX 1 EA IV SCH (02:28)
[2019-10-08 04:00] VITALS: BP 132/72
[2019-10-08] MEDS: METRONIDAZOLE 500 MG TABLET PO SCH ×4 (05:44→23:24)
[2019-10-08] MEDS: INSULIN REGULAR, HUMAN 100 UNIT/ML 3 ML VIAL SQ PRN ×4 (05:44→22:24)
[2019-10-08] MEDS: BLOOD SUGAR DIAGNOSTIC 1 EACH STRIP IN SCH ×4 (05:58→22:19)
--- NOTE | 2019-10-08 06:48 | NUR ---
RN PM CLOSING NOTE PATIENT IN BED RESTING AROUSABLE TO VOICE AX0X4 IVF INFUSING TO RIGHT JUGULAR CENTRAL LINE DRESSING INTACT WITH NO S/S OF COMPLICATIONS. SAFETY PRECAUTIONS IN PLACE BED DOWN LOCKED SRX2. WILL CONT TO MONITOR.
[2019-10-08 06:55] LABS: BILIRUBIN,TOTAL 0.7 mg/dL (0.2-1.0); CALCIUM, SERUM 7.6 mg/dL (8.5-10.1); CREATININE 0.8 mg/dL (0.6-1.3); MAGNESIUM 1.8 mg/dL (1.8-2.4); PHOSPHORUS 1.2 mg/dL (2.5-4.9); POTASSIUM 3.9 mmol/L (3.5-5.1); TOTAL PROTEIN, SERUM 5.9 g/dL (6.4-8.2)
--- NOTE | 2019-10-08 07:34 | NUR ---
RN NOTES RECEIVED PATIENT IN BED RESTING COMFORTABLY IN MODERATE HIGH BACK REST. A/O X4. NO SIGNS OF DISTRESS NOTED AT THIS TIME. IV FLUIDS RUNNING WELL. PATENT AND INTACT. SAFETY MEASURES IN PLACE BED IN LOW LOCKED POSITION WITH SIDE RAILS UPX2. CALL LIGHT WITHIN REACH. WILL CONTINUE TO MONITOR.
[2019-10-08] MEDS: INSULIN LISPRO/ASPART 100 UNIT/ML CARTRIDGE SQ SCH ×3 (07:52→18:11)
[2019-10-08 08:00] VITALS: BP 132/78
[2019-10-08] MEDS: PANTOPRAZOLE 40 MG VIAL IV SCH ×2 (08:36→17:06)
[2019-10-08] MEDS: GABAPENTIN 300 MG CAPSULE PO SCH (08:37)
[2019-10-08] MEDS: FAMOTIDINE (20 MG) 20 MG TABLET PO SCH (08:37)
[2019-10-08] MEDS: OLANZAPINE 5 MG TABLET PO SCH ×2 (08:37→17:07)
[2019-10-08] MEDS: THIAMINE HCL 100 MG TABLET PO SCH (08:37)
[2019-10-08] MEDS: TAMSULOSIN 0.4 MG CAP.SR.24H PO SCH ×2 (08:37→17:07)
[2019-10-08] MEDS: risperiDONE 1 MG TABLET PO SCH ×2 (08:37→17:06)
[2019-10-08] MEDS: DULOXETINE HCL 20 MG CAPSULE.DR PO SCH (08:38)
[2019-10-08] MEDS: BENAZEPRIL HCL 20 MG TABLET PO SCH ×3 (08:38→17:07)
[2019-10-08] MEDS: PREGABALIN 100 MG CAPSULE PO SCH ×3 (08:38→17:07)
[2019-10-08] MEDS: RIFAMPIN 300 MG CAPSULE PO SCH (08:54)
--- NOTE | 2019-10-08 12:00 | NUR ---
RN NOTES PATIENT PHOSPHORUS IS 1.2. MD ON UNIT, MADE AWARE OF RESULT WITH ORDERS OF 2 NEUTRA PHOSPH PACKETS. WILL CONTINUE TO MONITOR.
[2019-10-08] MEDS ORDERED: NEUTRA PHOS 1 POWD.PACKET PO ONE (12:30)
[2019-10-08 16:00] VITALS: BP 136/75
[2019-10-08] MEDS: VANCOMYCIN HCL 125 MG/2.5 ML ORAL.SUSP PO SCH ×2 (17:07→23:24)
--- NOTE | 2019-10-08 18:45 | NUR ---
RN CLOSING NOTES PATIENT IN BED RESTING COMFORTABLY IN MODERATE HIGH BACK REST. A/O X4. NO SIGNS OF DISTRESS NOTED THROUGHOUT THE SHIFT. IV FLUIDS RUNNING WELL. PATENT AND INTACT. SAFETY MEASURES IN PLACE BED IN LOW LOCKED POSITION WITH SIDE RAILS UPX2. CALL LIGHT WITHIN REACH. WILL ENDORSE TO ASTRONOMY DEPARTMENT CHAIR NURSE FOR ELIAS.
--- NOTE | 2019-10-08 19:05 | NUR ---
RN NOTES: RECEIVED ASLEEP ON BED, A/OX4, ORIENTED TO UNIT AND STAFF,TAKING A NAP, ON MAURICIO CATH DRAINING INTO DARK YELLOWISH COLORED URINE., ABLE TO AMBULATE WITH ASSIST GOING TO THE [facility], RIGHT JUGULAR CENTRAL LINE INTACT, WITH IVF OF NS + 40 mEq OF KCL AT 125 ML/HR, SENIOR PROGRAM MANAGER INSTRUCTED WE NEED TO COLLECT STOOL TO R/O PARASITE, BED LOW AND LOCKED, CALL LIGHT WITHIN EASY REACH
[2019-10-08 20:00] VITALS: BP 122/68
--- NOTE | 2019-10-08 20:34 | NUR ---
RN NOTES: IVF FINISHED, NEW BOTTLE OF NS + 40 mEQ KCL AT 125 ML/HR, STARTED. PATIENT WAS ASLEEP, NO PAIN OR DISCOMFORT AT THIS TIME.
[2019-10-08] MEDS: SIMVASTATIN 20 MG TABLET PO SCH (22:20)
[2019-10-08] MEDS: INSULIN GLARGINE, 100 UNIT/ML CARTRIDGE SQ SCH (22:21)
--- NOTE | 2019-10-08 22:24 | NUR ---
RN NOTES: BLOOD SUGAR CHECKED-187, DUE LANTUS AND INSULIN PER SCALE GIVEN, WILL CONTINUE TO MONITOR FOR SIGN OF HYPER AND HYPOGLYCEMIA
[2019-10-09] MEDS: MORPHINE SULFATE INJ 2 MG/ML DISP.SYRIN IV PRN ×3 (02:29→17:16)
--- NOTE | 2019-10-09 02:33 | NUR ---
RN NOTES: COMPLAINED OF PAIN 10/10, GENERALIZED PAIN, REQUEST FOR HER MORPHINE MEDICATION ,BP-120/65, NON PHARMACOLOGIC INTERVENTION RENDERED.CALL LIGHT KEPT WITHIN EASY REACH.
[2019-10-09] MEDS: LEVOFLOXACIN 500 MG /D5W 100ML 500 MG in PREMIX 1 EA IV SCH (02:35)
[2019-10-09 04:00] VITALS: BP 133/71
[2019-10-09] MEDS: METRONIDAZOLE 500 MG TABLET PO SCH ×4 (05:52→23:59)
[2019-10-09] MEDS: VANCOMYCIN HCL 125 MG/2.5 ML ORAL.SUSP PO SCH ×4 (05:52→23:59)
[2019-10-09] MEDS: Potassium Chloride 40 MEQ in IV NS 0.9% 1,000 ML IV SCH (06:03)
[2019-10-09 06:42] LABS: BASOPHILS % (AUTO) 0.3 % (0.0-2.0); EOSINOPHILS % (AUTO) 1.9 % (0.0-6.0); HEMATOCRIT 31 % (33-45); HEMOGLOBIN 10.7 g/dL (11.5-14.8); LYMPHOCYTES # (AUTO) 1.1 /CMM (0.8-4.8); MEAN CORPUSCULAR HGB CONC 34 g/dl (31.0-36.0); MEAN CORPUSCULAR VOLUME 96 fL (82-100); MONOCYTES # (AUTO) 0.9 /CMM (0.1-1.30); MONOCYTES % (AUTO) 6.5 % (2.0-12.0); NEUTROPHILS # (AUTO) 11.1 /CMM (1.8-8.9); NEUTROPHILS % (AUTO) 83.3 % (43.0-81.0); PLATELET COUNT (AUTO) 240 /CMM (150-450); RED BLOOD CELL COUNT(AUTO) 3.26 MIL/uL (4.0-5.2); WHITE BLOOD COUNT (AUTO) 13.3 K/uL (4.3-11.0)
--- NOTE | 2019-10-09 06:44 | NUR ---
RN NOTES: ABLE TO SLEEP AND REST, KEPT COMFORTABLE IN BED, CALLS AND NEEDS ATTENDED, TOTAL OUTPUT-2630,TO COLLECT STOOL SPECIMEN, NO BM IN ENTIRE NEWS ANALYST, ENDORSED FOR CONTINUITY OF CARE.
[2019-10-09 07:39] LABS: CALCIUM, SERUM 8.2 mg/dL (8.5-10.1); CREATININE 0.7 mg/dL (0.6-1.3); MAGNESIUM 1.7 mg/dL (1.8-2.4); PHOSPHORUS 1.9 mg/dL (2.5-4.9); POTASSIUM 4.3 mmol/L (3.5-5.1)
[2019-10-09] MEDS: BLOOD SUGAR DIAGNOSTIC 1 EACH STRIP IN SCH ×4 (07:45→21:39)
[2019-10-09] MEDS: INSULIN LISPRO/ASPART 100 UNIT/ML CARTRIDGE SQ SCH ×3 (07:48→17:27)
[2019-10-09 08:00] VITALS: BP 136/71
[2019-10-09] MEDS: PREGABALIN 100 MG CAPSULE PO SCH ×3 (08:23→17:16)
[2019-10-09] MEDS: PANTOPRAZOLE 40 MG VIAL IV SCH ×2 (08:23→17:16)
[2019-10-09] MEDS: GABAPENTIN 300 MG CAPSULE PO SCH (08:23)
[2019-10-09] MEDS: BENAZEPRIL HCL 20 MG TABLET PO SCH ×3 (08:23→17:17)
[2019-10-09] MEDS: risperiDONE 1 MG TABLET PO SCH ×2 (08:23→17:17)
[2019-10-09] MEDS: FAMOTIDINE (20 MG) 20 MG TABLET PO SCH (08:23)
[2019-10-09] MEDS: THIAMINE HCL 100 MG TABLET PO SCH (08:23)
[2019-10-09] MEDS: DULOXETINE HCL 20 MG CAPSULE.DR PO SCH (08:23)
[2019-10-09] MEDS: OLANZAPINE 5 MG TABLET PO SCH ×2 (08:23→17:17)
[2019-10-09] MEDS: TAMSULOSIN 0.4 MG CAP.SR.24H PO SCH ×2 (08:23→17:16)
[2019-10-09] MEDS: INSULIN REGULAR, HUMAN 100 UNIT/ML 3 ML VIAL SQ PRN ×2 (11:40→22:00)
--- NOTE | 2019-10-09 11:45 | NUR ---
MS/RN NOTES SPOKE TO DR. SANCHEZ WITH ORDERS TO D/C POTASSIUM CHLORIDE VIA IV. PATIENT ABLE TO TOLERATE MEALS WELL. PATIENT CONTINUES TO REMAIN IN STABLE CONDITION. WILL CONTINUE TO MONITOR PATIENT CLOSELY.
[2019-10-09] MEDS: Magnesium 1GM/D5W 100ML PREMIX 100 ML IV SCH ×2 (12:08→13:41)
[2019-10-09 16:00] VITALS: BP 131/69
[2019-10-09] MEDS ORDERED: NEUTRA PHOS 1 POWD.PACKET PO ONE (16:00)
--- NOTE | 2019-10-09 18:32 | NUR ---
MS/RN CLOSING NOTES PATIENT CONTINUES TO REMAIN IN STABLE CONDITION THROUGHOUT THE SHIFT. PROVIDED COMFORT AND SAFETY. PATIENT WAS ABLE TO TOLERATE MEALS AND MEDS WELL. IV ACCESS ON RIGHT JUGULAR AREA INTACT AND PATENT. FLUSHING WELL. NO S/S INFECTION OR INFILTRATION. ALL NEEDS ANTICIPATED. CALL LIGHT WITHIN REACHED. SAFETY MAINTAINED. BED LOCKED AND IN LOWEST POSITION. WILL CONTINUE TO MONITOR CLOSELY. ENDORSED TO PM NURSE FOR ELIAS.
[2019-10-09 20:00] VITALS: BP 144/80
[2019-10-09] MEDS: SIMVASTATIN 20 MG TABLET PO SCH (21:54)
[2019-10-09] MEDS: INSULIN GLARGINE, 100 UNIT/ML CARTRIDGE SQ SCH (21:56)
[2019-10-10] MEDS: LEVOFLOXACIN 500 MG /D5W 100ML 500 MG in PREMIX 1 EA IV SCH (03:08)
[2019-10-10] MEDS: MORPHINE SULFATE INJ 2 MG/ML DISP.SYRIN IV PRN ×3 (03:24→19:35)
[2019-10-10 03:31] VITALS: BP 155/78
[2019-10-10 05:00] VITALS: BP 132/68
[2019-10-10] MEDS: VANCOMYCIN HCL 125 MG/2.5 ML ORAL.SUSP PO SCH ×4 (05:56→23:09)
[2019-10-10] MEDS: METRONIDAZOLE 500 MG TABLET PO SCH ×4 (05:56→23:09)
[2019-10-10 07:24] LABS: CALCIUM, SERUM 8.4 mg/dL (8.5-10.1); CREATININE 0.9 mg/dL (0.6-1.3); MAGNESIUM 1.8 mg/dL (1.8-2.4); PHOSPHORUS 3.2 mg/dL (2.5-4.9); POTASSIUM 4.1 mmol/L (3.5-5.1)
--- NOTE | 2019-10-10 07:30 | NUR ---
RN AM NOTES: RECEIVED PT IN BED, ASLEEP, A/OX4,ON ROOM AIR, NO SOB, NO DISTRESS, DENIES PAIN AT THIS TIME. RT JUGULAR CENTRAL LINEON MAURICIO CATH DRAINING INTO DARK YELLOWISH COLORED URINE., ABLE TO AMBULATE WITH ASSIST GOING TO THE BATHROOM, RIGHT JUGULAR CENTRAL LINE INTACT, FLUSHES WELL, SITE CLEAR. CCHO DIET, USES BSC. BED LOW AND LOCKED, CALL LIGHT WITHIN EASY REACH
[2019-10-10] MEDS: BLOOD SUGAR DIAGNOSTIC 1 EACH STRIP IN SCH ×4 (07:39→21:47)
[2019-10-10 08:00] VITALS: BP 140/76
[2019-10-10] MEDS: INSULIN LISPRO/ASPART 100 UNIT/ML CARTRIDGE SQ SCH ×3 (08:50→17:24)
[2019-10-10] MEDS: INSULIN REGULAR, HUMAN 100 UNIT/ML 3 ML VIAL SQ PRN ×4 (08:57→21:46)
--- NOTE | 2019-10-10 09:30 | NUR ---
RN NOTES DUE MEDS GIVEN
[2019-10-10] MEDS: PREGABALIN 100 MG CAPSULE PO SCH ×3 (09:36→17:04)
[2019-10-10] MEDS: PANTOPRAZOLE 40 MG VIAL IV SCH ×2 (09:36→17:04)
[2019-10-10] MEDS: TAMSULOSIN 0.4 MG CAP.SR.24H PO SCH ×2 (09:36→17:04)
[2019-10-10] MEDS: DULOXETINE HCL 20 MG CAPSULE.DR PO SCH (09:36)
[2019-10-10] MEDS: THIAMINE HCL 100 MG TABLET PO SCH (09:36)
[2019-10-10] MEDS: OLANZAPINE 5 MG TABLET PO SCH ×2 (09:36→17:04)
[2019-10-10] MEDS: GABAPENTIN 300 MG CAPSULE PO SCH (09:36)
[2019-10-10] MEDS: FAMOTIDINE (20 MG) 20 MG TABLET PO SCH (09:36)
[2019-10-10] MEDS: BENAZEPRIL HCL 20 MG TABLET PO SCH ×3 (09:37→17:04)
[2019-10-10] MEDS: risperiDONE 1 MG TABLET PO SCH ×2 (09:38→17:04)
[2019-10-10 12:12] LABS: BASOPHILS # (AUTO) 0.1 /CMM (0.0-0.2); BASOPHILS % (AUTO) 0.5 % (0.0-2.0); EOSINOPHILS % (AUTO) 2.2 % (0.0-6.0); HEMATOCRIT 33 % (33-45); HEMOGLOBIN 10.9 g/dL (11.5-14.8); LYMPHOCYTES # (AUTO) 1.3 /CMM (0.8-4.8); LYMPHOCYTES % (AUTO) 10.6 % (20.0-44.0); MEAN CORPUSCULAR HGB CONC 33 g/dl (31.0-36.0); MEAN CORPUSCULAR VOLUME 97 fL (82-100); MONOCYTES % (AUTO) 8.4 % (2.0-12.0); NEUTROPHILS # (AUTO) 9.6 /CMM (1.8-8.9); NEUTROPHILS % (AUTO) 78.3 % (43.0-81.0); PLATELET COUNT (AUTO) 268 /CMM (150-450); RED BLOOD CELL COUNT(AUTO) 3.41 MIL/uL (4.0-5.2); WHITE BLOOD COUNT (AUTO) 12.3 K/uL (4.3-11.0)
--- NOTE | 2019-10-10 12:25 | NUR ---
RN NOTES BS 148 MG/DL. 2 UNITS HUM R GIVEN PER SS
[2019-10-10 16:00] VITALS: BP 130/70
--- NOTE | 2019-10-10 17:20 | NUR ---
RN NOTES BS 158 MG/DL. 2 UNITS HUM R GIVEN PER SS
--- NOTE | 2019-10-10 18:26 | NUR ---
RN CLOSING NOTES: PT RESTING. A/OX4,ON ROOM AIR, NO SOB, NO DISTRESS, DENIES PAIN AT THIS TIME. ON MAURICIO CATH DRAINING INTO DARK YELLOWISH COLORED URINE., ABLE TO AMBULATE WITH ASSIST GOING TO THE BATHROOM, RIGHT JUGULAR CENTRAL LINE INTACT, FLUSHES WELL, SITE CLEAR. CCHO DIET, USES BSC. BED LOW AND LOCKED, CALL LIGHT WITHIN EASY REACH. ALL NEEDS ATTENDED AND MET AT THIS TIME. NO OTHER SIGNIFICANT CHANGE IN CONDITION, WILL ENDORSE TO NEXT SHIFT FOR ELIAS.
--- NOTE | 2019-10-10 19:30 | NUR ---
MS RN OPENING NOTES RECEIVED PATIENT SITTING ON THE BEDSIDE COMMODE, ALERT AND ORIENTED X 4. VERBALLY RESPONSIVE AND ABLE TO FOLLOW DIRECTIONS. BREATHING REGULAR AND UNLABORED ON ROOM AIR. RIGHT JUGULAR CENTRAL LINE INTACT AND PATENT, FLUSHING WELL WITH NO BLEEDING OR S/S OF INFECTION NOTED. BODY ASSESSMENT DONE, SEEN WITH LEFT ELBOW DRY SCAB. COMPLAINED OF 8/10 ABDOMINAL PAIN, MORPHINE 2MG GIVEN VIA IV PUSH. NON-PHARMACOLOGICAL INTERVENTIONS PROVIDED. VITAL SIGN WNL. BED LOW AND LOCKED ON SEMI FOWLERS POSITION. CALL LIGHT IN REACH. WILL CONTINUE TO MONITOR.
[2019-10-10] MEDS: SIMVASTATIN 20 MG TABLET PO SCH (21:42)
[2019-10-10] MEDS: INSULIN GLARGINE, 100 UNIT/ML CARTRIDGE SQ SCH (21:45)
--- NOTE | 2019-10-10 21:45 | NUR ---
MS RN NOTES BS 145mg/dl, 2UNITS REGULAR INSULIN AND 32UNITS LANTUS GIVEN SQ. MONITORED FOR S/S OF HYPO/HYPERGLYCEMIA. SNACKS PROVIDED ON BEDSIDE.
[2019-10-11] MEDS: LEVOFLOXACIN 500 MG /D5W 100ML 500 MG in PREMIX 1 EA IV SCH (03:15)
[2019-10-11] MEDS: MORPHINE SULFATE INJ 2 MG/ML DISP.SYRIN IV PRN ×2 (04:57→12:27)
[2019-10-11] MEDS: VANCOMYCIN HCL 125 MG/2.5 ML ORAL.SUSP PO SCH ×3 (05:02→17:40)
[2019-10-11] MEDS: METRONIDAZOLE 500 MG TABLET PO SCH ×3 (05:02→17:40)
--- NOTE | 2019-10-11 05:10 | NUR ---
MS RN NOTES COMPLAINED OF 8/10 ABDOMINAL PAIN, MORPHINE 2MG GIVEN VIA IV PUSH. NON-PHARMACOLOGICAL INTERVENTIONS PROVIDED. VITAL SIGN WNL. WILL CONTINUE TO MONITOR.
--- NOTE | 2019-10-11 06:35 | NUR ---
MS RN CLOSING NOTES PATIENT IN BED ALERT AND ORIENTED X 4. BREATHING REGULAR AND UNLABORED ON ROOM AIR. RIGHT JUGULAR CENTRAL LINE INTACT FLUSHING WELL WITH NO BLEEDING NOTED. COMPLAINED OF 2/10 ABDOMINAL PAIN, NON-PHARMACOLOGICAL INTERVENTIONS PROVIDED. MAURICIO CATH INTACT DRAINING ERNESTO COLORED URINE WITH 950CC OUTPUT. BED LOW AND LOCKED ON SEMI FOWLERS POSITION. CALL LIGHT IN REACH. WILL ENDORSE TO MORNING SHIFT FOR ELIAS.
--- NOTE | 2019-10-11 07:35 | NUR ---
MS RN NOTES RECEIVED PATIENT IN BED SLEEPING . AROUSED WHEN NAME CALLED, A/O X 4. NO SOB AND DISCOMFORT AT THIS TIME. CALL LIGHT WITHIN REACH, BED AT THE LOWEST POSITION LOCKED. WILL CONTINUE TO MONITOR PATIENT.
[2019-10-11] MEDS: BLOOD SUGAR DIAGNOSTIC 1 EACH STRIP IN SCH ×3 (07:43→17:39)
[2019-10-11] MEDS: INSULIN REGULAR, HUMAN 100 UNIT/ML 3 ML VIAL SQ PRN ×3 (07:48→17:42)
[2019-10-11 08:00] VITALS: BP 115/66
[2019-10-11] MEDS: INSULIN LISPRO/ASPART 100 UNIT/ML CARTRIDGE SQ SCH ×3 (08:49→18:24)
[2019-10-11] MEDS: PANTOPRAZOLE 40 MG VIAL IV SCH ×2 (08:51→16:15)
[2019-10-11] MEDS: TAMSULOSIN 0.4 MG CAP.SR.24H PO SCH ×2 (08:54→16:19)
[2019-10-11] MEDS: DULOXETINE HCL 20 MG CAPSULE.DR PO SCH (08:54)
[2019-10-11] MEDS: BENAZEPRIL HCL 20 MG TABLET PO SCH (08:56)
--- NOTE | 2019-10-11 08:56 | NUR ---
MS RN NOTES BP 110/58 LOTENSIN NOT ADMINISTERED.
[2019-10-11] MEDS: THIAMINE HCL 100 MG TABLET PO SCH (08:57)
[2019-10-11] MEDS: risperiDONE 1 MG TABLET PO SCH ×2 (08:57→16:19)
[2019-10-11] MEDS: GABAPENTIN 300 MG CAPSULE PO SCH (08:58)
[2019-10-11] MEDS: FAMOTIDINE (20 MG) 20 MG TABLET PO SCH (08:58)
[2019-10-11] MEDS: PREGABALIN 100 MG CAPSULE PO SCH ×3 (08:58→16:19)
[2019-10-11] MEDS: OLANZAPINE 5 MG TABLET PO SCH ×2 (08:59→16:19)
[2019-10-11] MEDS ORDERED: BENAZEPRIL HCL 20 MG TABLET PO SCH (12:19)
--- NOTE | 2019-10-11 15:45 | NUR ---
MS RN NOTES MAURICIO CATHETER REMOVED AND WILL FOLLOW UP IF PATIENT IS ABLE TO VOID.
[2019-10-11 16:00] VITALS: BP 100/60
--- NOTE | 2019-10-11 20:00 | NUR ---
2000 RIGHT IJ CENTRAL LINE REMOVED WITH NO RESISTANCE, TIP INTACT, APPLIED PRESSURE TO SITE AND REINFORCED WITH DRESSING. PATIENT TOLERATED PROCEDURE WELL. NO BLEEDING NOTED.
--- NOTE | 2019-10-11 20:31 | NUR ---
MS RN NOTES PATIENT TRANSFERRED TO [facility] BY AMBULANCE.RIGHT JUGULAR CENTRAL LINE REMOVED, ID BAND REMOVED. PICTURE TAKEN AND PLACED IN THE CHART, BELONGING SIGNED AND RETURNED TO PATIENT.
== END 2019-10-11 20:34 | DRG 385 ==
LOC: ICU 10-06 02:27 → MEDSG1 10-06 16:25
PROVIDERS: ADMIT Registered Nurse
DX: K51.00 Ulcerative (chronic) pancolitis without complications (principal); E11.10 Type 2 diabetes mellitus with ketoacidosis without coma; N13.6 Pyonephrosis; E87.1 Hypo-osmolality and hyponatremia; Z86.73 Personal history of transient ischemic attack (TIA), and cerebral infarction without residual deficits; E86.0 Dehydration; E11.43 Type 2 diabetes mellitus with diabetic autonomic (poly)neuropathy; K31.84 Gastroparesis; R29.6 Repeated falls; Z79.4 Long term (current) use of insulin; Z87.442 Personal history of urinary calculi; Z91.81 History of falling; E11.65 Type 2 diabetes mellitus with hyperglycemia; E87.6 Hypokalemia; E83.39 Other disorders of phosphorus metabolism; R23.4 Changes in skin texture; S50.902A Unspecified superficial injury of left elbow, initial encounter; X58.XXXA Exposure to other specified factors, initial encounter; Y93.9 Activity, unspecified; Y92.89 Other specified places as the place of occurrence of the external cause
CPT/HCPCS: 36415; 36600; 71045-TC; 80048-TC; 80053-TC; 80061-TC; 81000-TC; 82272-TC; 82803-TC; 82962-TC; 83540-TC; 83735-TC; 84100-TC; 84443-TC; 84703-TC; 85025-TC; 87040-TC; 87045-TC; 87081-TC; 87086-TC; 97116-TC; 97530-TC; A4216; C9113; G0378; J0696; J1815; J1956; J2270; J2405; J3475; J3480; J3490; J7030; J7060; Q9963